=== PATIENT | female | born 1940 | race Caucasian/White ===

== ENCOUNTER → 2016-12-02 | Outpatient (CLI) | payer MEDICARE ==
[~2016-12-02] MED LIST: ASPI-808 PO; ASPI325T32 PO; CYAN10006 PO; GLYB2.5T4 PO; HYDR-3816 PO; INSU100V16 SC; INSU100V5 SQ; LOSA50TA36 PO; LOVA20TA2 PO; METF500T4 PO; MULT1CAP27 PO; NAPR220C46 PO; OMG1KC PO; SENN-20 PO; TRAM50TA2 PO; VITA400C58 PO
--- NOTE | 2016-12-02 11:47 | Diagnostic Imaging Report ---
PROCEDURE: US Carotid Duplex Bilateral. TECHNIQUE: Multiple real-time grayscale images were obtained over the carotid arteries in various projections bilaterally. Additional duplex Doppler and color Doppler images were also obtained. INDICATION: Family history of carotid artery disease. FINDINGS: Grayscale images demonstrate minimal plaque along the proximal internal carotid arteries bilaterally. The color Doppler demonstrates patent common, internal and external carotid arteries. There is antegrade flow in the vertebral arteries bilaterally. Peak systolic velocities in the ICA on the right are 58, 58 and 53 cm/s from proximal to distal and on the left side 53, 52 and 63 cm/s. ICA/CCA ratios are up to 0.7 on the right and 0.7 on the left. IMPRESSION: Mild atherosclerotic calcifications at the carotid bifurcation bilaterally with estimated underlying stenosis in the range of 0-25% bilaterally. Dictated by: Dictated on workstation # [id number]
== END ==
LOC: RAD 10:24
PROVIDERS: ATTEND Nurse Practitioner Community Health
DX: R09.89 Other specified symptoms and signs involving the circulatory and respiratory systems (principal); E11.9 Type 2 diabetes mellitus without complications; Z82.49 Family history of ischemic heart disease and other diseases of the circulatory system; I65.23 Occlusion and stenosis of bilateral carotid arteries
CPT/HCPCS: 93880

== ENCOUNTER 2019-10-16 12:31 | Emergency (ER) | payer MEDICARE ==
[~2019-10-16] VITALS: Ht 157 cm; Wt 86.1 kg
[~2019-10-16 12:31] MED LIST changes: +CYAN-41 PO; -CYAN10006 PO; +HYDR-34 PO; -HYDR-3816 PO; -LOSA50TA36 PO; +LOSA50TA63 PO; +METF-397 PO; -METF500T4 PO; -NAPR220C46 PO; +NAPR220C61 PO; -TRAM50TA2 PO; +TRM50T PO; +VITA-272 PO; -VITA400C58 PO
[2019-10-16] MEDS ORDERED: NS IV 1000 ML 1,000 ML IV SCH (12:42)
--- NOTE | 2019-10-16 12:54 | NUR ---
PATIENT REPORTS THAT SHE EATS 4 COOKIES EVERY AM WHILE TAKING HER MEDS. TODAY ATE AT [employer] ATE A SAUSAGE BISCUIT WITH CINNIAMON TWIST.
--- NOTE | 2019-10-16 13:00 | NUR ---
ICE CHIPS GIVEN.
[2019-10-16 13:02] LABS: BASOPHILS % (AUTO) 0 % (0-10); EOSINOPHILS # (AUTO) 0.2 10^3/uL (0.0-0.3); EOSINOPHILS % (AUTO) 2 % (0-10); HEMATOCRIT 40 % (35-52); HEMOGLOBIN 13.3 G/DL (11.5-16.0); LYMPHOCYTES # (AUTO) 2.2 X 10^3 (1.0-4.0); LYMPHOCYTES % (AUTO) 24 % (12-44); MEAN CORPUSCULAR HEMOGLOBIN 27 PG (25-34); MEAN CORPUSCULAR HGB CONC 33 G/DL (32-36); MEAN CORPUSCULAR VOLUME 82 FL (80-99); MEAN PLATELET VOLUME 9.6 FL (7.4-10.4); MONOCYTES # (AUTO) 0.7 X 10^3 (0.0-1.0); MONOCYTES % (AUTO) 8 % (0-12); NEUTROPHILS # (AUTO) 6.2 X 10^3 (1.8-7.8); NEUTROPHILS % (AUTO) 66 % (42-75); PLATELET COUNT 265 10^3/uL (130-400); RED CELL DISTRIBUTION WIDTH 14.5 % (10.0-14.5); WHITE BLOOD COUNT 9.4 10^3/uL (4.3-11.0)
--- NOTE | 2019-10-16 13:02 | NUR ---
MED LIST TO CHART
--- NOTE | 2019-10-16 13:05 | ED General ---
General Chief Complaint: Glucose Problems Stated Complaint: BS ISSUES;DRY MOUTH Nursing Triage Note: STATES HER BLOOD SUGAR THIS AM WAS 366 ET SHE TOOK 28 UNITS OF LEVIMIR. STATES SHE IS VERY TIRED AND HER MOUTH IS DRY WHICH IS CAUSING HER TO HAVE TROUBLE SPEAKING. Nursing Sepsis Screen: No Definite Risk History of Present Illness Date Seen by Provider: Oct 16, 2019 Time Seen by Provider: 12:35 Initial Comments 79 year old Type II DM female presents for hyperglycemia. She reports that she took her blood sugar approximately one hour prior to arrival and it was 366. Earlier today she took her Levemir 28 units and then ate 3 oreos and came to town and had [employer] including a sausage biscuit and cinnamon sugar twists. She has had very little water intake today. She is complaining that her mouth is dry. She is unsure what her latest hemoglobin A1c is, however her reports that her blood sugars 200 regularly. She takes Levemir twice daily. Timing/Duration: 1-3 Hours Associated Systoms: No Chest Pain, No Cough, No Diaphoresis, No Fever/Chills, No Headaches, No Loss of Appetite; Malaise; No Nausea/Vomiting, No Rash, No Seizure, No Shortness of Air, No Syncope, No Weakness, No Other Allergies and Home Medications Allergies Coded Allergies: No Known Drug Allergies (Unverified , 07/20/15) Home Medications Aspirin 325 Mg Tablet.dr, 325 MG PO BID Prescribed by: AMY LANCE on 08/05/15 1112 Cyanocobalamin (Vitamin B-12) 1,000 Mcg Tablet, 1,000 MCG PO DAILY, (Reported) Hydrocodone Bit/Acetaminophen 1 Each Tablet, 1 EA PO Q4H PRN for PAIN Prescribed by: YAO NUÑEZ on 07/31/15 1018 Losartan Potassium 50 Mg Tablet, 50 MG PO HS, (Reported) Lovastatin 20 Mg Tablet, 20 MG PO HS, (Reported) Metformin HCl 500 Mg Tablet, 500 MG PO TIDWM Prescribed by: YAO NUÑEZ on 07/31/15 1018 Multivitamin 1 Each Capsule, 1 EACH PO DAILY, (Reported) Rowe 3 Polyunsat Fatty Acids 1,000 Mg Cap, 1,000 MG PO DAILY, (Reported) Sennosides/Docusate Sodium 1 Each Tablet, 1 EA PO BID Prescribed by: AMY LANCE on 08/05/15 1112 Vitamin E Mixed 400 Unit Capsule, 400 UNIT PO DAILY, (Reported) Patient Home Medication List Home Medication List Reviewed: Yes Review of Systems Review of Systems Constitutional: no symptoms reported, see HPI EENTM: see HPI, other (dry mouth) Respiratory: no symptoms reported, see HPI Cardiovascular: no symptoms reported, see HPI Gastrointestinal: no symptoms reported, see HPI Genitourinary: no symptoms reported, see HPI Musculoskeletal: no symptoms reported, see HPI Psychiatric/Neurological: No Symptoms Reported, See HPI All Other Systems Reviewed Negative Unless Noted: Yes Past Raiuyat-Lgtltp-Jeqdhc Hx Past Med/Social Hx: Reviewed Nursing Past Med/Soc Hx Patient Social History Alcohol Use: Denies Use Recreational Drug Use: No Smoking Status: Never a Smoker Recent Foreign Travel: No Contact w/Someone Who Travel: No Recent Infectious Disease Expo: No Immunizations Up To Date Tetanus Booster (TDap): Unknown PED Vaccines UTD: No Date of Pneumonia Vaccine: Aug 14, 2011 Date of Influenza Vaccine: May 28, 2015 Past Medical History Surgeries: Yes Respiratory: No Cardiac: Yes Neurological: No Gastrointestinal: Yes Chronic Constipation Musculoskeletal: Yes Arthritis Endocrine: Yes Diabetes, Non-Insulin dep Cancer: No Psychosocial: No Integumentary: No Blood Disorders: No Adverse Reaction/Blood Tranf: No Family Medical History Alcoholism 19 FATHER Aphasia Arthritis G8 SISTER Dementia 19 MOTHER Diabetes mellitus G8 SISTER Physical Exam Vital Signs Vital Signs - First Documented 10/16/19 12:35 Temp 35.3 Pulse 104 Resp 16 B/P (MAP) 156/91 (112) Pulse Ox 95 O2 Delivery Room Air Capillary Refill : Less Than 3 Seconds Height, Weight, BMI Height: 5'2.00" Weight: 184lbs. 6.4oz. [id number]; 34.00 BMI Method: General Appearance: No Apparent Distress, WD/WN Eyes: Bilateral Eye Normal Inspection, Bilateral Eye PERRL, Bilateral Eye EOMI HEENT: PERRL/EOMI, TMs Normal, Pharynx Normal, Other (oromucosa pink and dry) Neck: Full Range of Motion, Normal Inspection, Non Tender, Supple Respiratory: Chest Non Tender, Lungs Clear, Normal Breath Sounds Cardiovascular: Regular Rate, Rhythm, No Murmur, Normal Peripheral Pulses Extremity: Normal Capillary Refill, Normal Inspection, Normal Range of Motion Neurologic/Psychiatric: Alert, Oriented x3, No Motor/Sensory Deficits, Normal Mood/Affect, 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 Progress/Results/Core Measures Suspected Sepsis Recent Fever Within 48 Hours: No Infection Criteria Present: None New/Unexplained Altered Menta: No Sepsis Screen: No Definite Risk SIRS Temperature: Pulse: 104 Respiratory Rate: 16 Laboratory Tests 10/16/19 12:54: White Blood Count 9.4 Blood Pressure 156 /91 Mean: 112 Laboratory Tests 10/16/19 12:54: Creatinine 1.05, Platelet Count 265, Total Bilirubin 0.3 Results/Orders Lab Results Laboratory Tests Test 10/16/19 12:44 10/16/19 12:54 10/16/19 13:04 Range/Units Glucometer 263 H 70-110 MG/DL White Blood Count 9.4 4.3-11.0 10^3/uL Red Blood Count 4.96 4.35-5.85 10^6/uL Hemoglobin 13.3 11.5-16.0 G/DL Hematocrit 40 35-52 % Mean Corpuscular Volume 82 80-99 FL Mean Corpuscular Hemoglobin 27 25-34 PG Mean Corpuscular Hemoglobin Concent 33 32-36 G/DL Red Cell Distribution Width 14.5 10.0-14.5 % Platelet Count 265 130-400 10^3/uL Mean Platelet Volume 9.6 7.4-10.4 FL Neutrophils (%) (Auto) 66 42-75 % Lymphocytes (%) (Auto) 24 12-44 % Monocytes (%) (Auto) 8 0-12 % Eosinophils (%) (Auto) 2 0-10 % Basophils (%) (Auto) 0 0-10 % Neutrophils # (Auto) 6.2 1.8-7.8 X 10^3 Lymphocytes # (Auto) 2.2 1.0-4.0 X 10^3 Monocytes # (Auto) 0.7 0.0-1.0 X 10^3 Eosinophils # (Auto) 0.2 0.0-0.3 10^3/uL Basophils # (Auto) 0.0 0.0-0.1 10^3/uL Sodium Level 139 135-145 MMOL/L Potassium Level 4.3 3.6-5.0 MMOL/L Chloride Level 105 98-107 MMOL/L Carbon Dioxide Level 26 21-32 MMOL/L Anion Gap 8 5-14 MMOL/L Blood Urea Nitrogen 14 7-18 MG/DL Creatinine 1.05 0.60-1.30 MG/DL Estimat Glomerular Filtration Rate 51 BUN/Creatinine Ratio 13 Glucose Level 260 H 70-105 MG/DL Calcium Level 9.2 8.5-10.1 MG/DL Corrected Calcium 9.1 8.5-10.1 MG/DL Total Bilirubin 0.3 0.1-1.0 MG/DL Aspartate Amino Transf (AST/SGOT) 18 5-34 U/L Alanine Aminotransferase (ALT/SGPT) 21 0-55 U/L Alkaline Phosphatase 105 40-136 U/L Total Protein 7.1 6.4-8.2 GM/DL Albumin 4.1 3.2-4.5 GM/DL Urine Color YELLOW Urine Clarity CLEAR Urine pH 5.5 5-9 Urine Specific [place] <=1.005 1.016-1.022 Urine Protein NEGATIVE NEGATIVE Urine Glucose (UA) 3+ H NEGATIVE Urine Ketones NEGATIVE NEGATIVE Urine Nitrite NEGATIVE NEGATIVE Urine Bilirubin NEGATIVE NEGATIVE Urine Urobilinogen 0.2 < = 1.0 MG/DL Urine Leukocyte Esterase NEGATIVE NEGATIVE Urine RBC (Auto) NEGATIVE NEGATIVE Urine RBC NONE /HPF Urine WBC NONE /HPF Urine Squamous Epithelial Cells 0-2 /HPF Urine Crystals NONE /LPF Urine Bacteria TRACE /HPF Urine Casts NONE /LPF Urine Mucus NEGATIVE /LPF Urine Culture Indicated NO My Orders Orders - BRENDON FERMIN Accucheck Stat ONCE (10/16/19 12:33) Cbc With Automated Diff (10/16/19 12:42) Comprehensive Metabolic Panel (10/16/19 12:42) Ua Culture If Indicated (10/16/19 12:42) Ed Iv/Invasive Line Start (10/16/19 12:42) Ns Iv 1000 Ml (Sodium Chloride 0.9%) (10/16/19 12:42) Accucheck Stat ONCE (10/16/19 14:16) Vital Signs/I&O 10/16/19 12:35 Temp 35.3 Pulse 104 Resp 16 B/P (MAP) 156/91 (112) Pulse Ox 95 O2 Delivery Room Air Capillary Refill : Less Than 3 Seconds Blood Pressure Mean: 112 Point of Care Testing Finger Stick Blood Glucose: 263 Progress Note : Time: 12:35 Progress Note Patient seen and evaluated, will obtain labs and give 1 L of normal saline per IV. Accu-Chek 263. 1320 Labs reviewed, all WNL other than elevated Glucose 260. Patient denies any problems. IV infusing slowly, patient has her elbow flexed. Explained she needs to keep it straight. Taking ice chips. 1400 IV continuing to infuse. 1415 Accucheck 216. Discharge instructions and return precautions reviewed with the patient. All questions answered. Departure Impression Primary Impression: Hyperglycemia due to type 2 diabetes mellitus Qualified Codes: E11.65 - Type 2 diabetes mellitus with hyperglycemia; Z79.4 - shelter (current) use of insulin Disposition: HOME, SELF-CARE Condition: Improved Departure-Patient Inst. Decision time for Depature: 13:30 Referrals: [facility] (PCP) Primary Care Physician Patient Instructions: Diabetes Type 2 (DC), Hyperglycemia, Adult (DC) Add. Discharge Instructions: Keep a journal of your food and blood sugars, check them every morning before eating and each evening. Try to avoid high sugar/carb foods. Increase water intake. See Calderon Arreola APRN in 2 weeks. Return to ER for new, urgent health care needs. All discharge instructions reviewed with patient and/or family. Voiced understanding. Copy Copies To 1: GISELE FERRERA AMY ARNP Oct 16, 2019 13:05
[2019-10-16 13:09] LABS: BILIRUBIN,URINE NEGATIVE (NEGATIVE); CLARITY,URINE CLEAR; COLOR,URINE YELLOW; GLUCOSE, URINE (UA) 3+ (NEGATIVE); KETONES,URINE NEGATIVE (NEGATIVE); LEUKOCYTE ESTERASE ,URINE NEGATIVE (NEGATIVE); NITRITE,URINE NEGATIVE (NEGATIVE); PH,URINE 5.5 (5-9); PROTEIN,URINE NEGATIVE (NEGATIVE)
[2019-10-16 13:21] LABS: BACTERIA,URINE TRACE /HPF; SQUAMOUS EPITHELIAL CELL,UR 0-2 /HPF
[2019-10-16 13:22] LABS: ALBUMIN 4.1 GM/DL (3.2-4.5); BILIRUBIN,TOTAL 0.3 MG/DL (0.1-1.0); CALCIUM 9.2 MG/DL (8.5-10.1); CREATININE SERUM 1.05 MG/DL (0.60-1.30); POTASSIUM 4.3 MMOL/L (3.6-5.0); TOTAL PROTEIN 7.1 GM/DL (6.4-8.2)
--- NOTE | 2019-10-16 13:40 | NUR ---
TO ROOM FLUIDS INFUSING
--- NOTE | 2019-10-16 14:18 | NUR ---
TO ROOM FLUIDS CON'T TO INFUSE.
[2019-10-16 14:42] VITALS: BP 187/100
== END 2019-10-16 14:45 | disposition home or self-care (01) ==
LOC: EDUNIT# 12:31 → ER 12:33
DX: E11.65 Type 2 diabetes mellitus with hyperglycemia (principal); Z79.82 Long term (current) use of aspirin; Z79.84 Long term (current) use of oral hypoglycemic drugs
CPT/HCPCS: 36415; 80053; 81000; 82962; 85025

== ENCOUNTER → 2020-05-14 | Outpatient (CLI) | payer MEDICARE | LOC: CARD 14:30 | PROVIDERS: ATTEND Internal Medicine Cardiovascular Disease | DX: I50.9 Heart failure, unspecified (principal); I10 Essential (primary) hypertension; E78.2 Mixed hyperlipidemia; E11.9 Type 2 diabetes mellitus without complications; I08.0 Rheumatic disorders of both mitral and aortic valves ==

== ENCOUNTER → 2020-05-27 | Outpatient (CLI) | payer MEDICARE, OTHER ==
[~2020-05-27] VITALS: Ht 157 cm; Wt 85.0 kg
[~2020-05-27] MED LIST changes: +CATHETER FLUSH 10 ML SYR IV PRN; +REGADENOSON 0.4 MG/5 ML SYR (LEXISCAN) IV ONE
[2020-05-27 09:24] VITALS: BP 161/89
[2020-05-27 09:35] VITALS: BP 137/81
--- NOTE | 2020-06-01 10:39 | Cardiology Stress Test Report ---
Stress Test Report Date of Procedure/Referring: Date of Procedure: May 27, 2020 PCP Brooklyn Travis MD Admitting Physician [facility] Indications: Congestive heart failure Baseline Heart Rate: 96 Baseline Blood Pressure: Blood Pressure Systolic: 137 Blood Pressure Diastolic: 81 Baseline Vitals Vital Signs Date Time Temp Pulse Resp B/P (MAP) Pulse Ox O2 Delivery O2 Flow Rate FiO2 05/27/20 09:24 116 20 161/89 (113) Room Air Baseline EKG: Baseline EKG: normal sinus rhythm, poor R-wave progression in the anteriorly Summary After explaining the procedure to the patient, she signed a consent and then brought to the stress nuclear laboratory. Patient received 0.4 mg Lexiscan for stress test, ECG, heart rate and blood pressure were monitored continuously. Resting and stress dose of radio tracer were injected, imaging was acquired and reviewed in short axis, horizontal long axis and vertical long axis views. TID: 1.08 SSS: 44 SDS: 5 EF: 28 1. Patient tolerated Lexiscan well 2. Baseline EKG abnormality with poor R-wave progression in the anterior lead and inferior leads 3. Total infarction of the true apex, mid to apical anterior wall and mid to apical inferior wall with no significant reversibility 4. Prominent left ventricle with dyskinesia of the apex, hypokinesia of the anterior wall and inferior wall, EF 28 percent BROOKLYN TRAVIS MD Jun 01, 2020 10:39
== END ==
LOC: CARD 08:13
PROVIDERS: ATTEND Internal Medicine Cardiovascular Disease
DX: I50.9 Heart failure, unspecified (principal); I11.9 Hypertensive heart disease without heart failure; E78.2 Mixed hyperlipidemia; E11.9 Type 2 diabetes mellitus without complications
CPT/HCPCS: 78452; 93017; A9502

== ENCOUNTER 2020-07-29 11:00 | Day surgery (SDC) | payer MEDICARE ==
[~2020-07-29] VITALS: Ht 152.4 cm; Wt 193.0 kg
[2020-07-29] VITALS (13 sets, daily range): BP systolic 96–148; BP diastolic 67–88
[2020-07-29 09:28] LABS: HEMOGLOBIN 13.5 g/dL (11.5-16.0); MEAN PLATELET VOLUME 9.9 fL (9.0-12.2); WHITE BLOOD COUNT 11.2 10^3/uL (4.3-11.0)
[2020-07-29 09:36] LABS: PROTHROMBIN TIME PATIENT 13.3 SEC (12.2-14.7)
[2020-07-29 09:38] LABS: BILIRUBIN,URINE NEGATIVE (NEGATIVE); CLARITY,URINE TURBID; COLOR,URINE YELLOW; GLUCOSE, URINE (UA) 1+ (NEGATIVE); KETONES,URINE NEGATIVE (NEGATIVE); LEUKOCYTE ESTERASE ,URINE TRACE (NEGATIVE); NITRITE,URINE NEGATIVE (NEGATIVE); PH,URINE 5.5 (5-9); PROTEIN,URINE TRACE (NEGATIVE)
[2020-07-29 09:48] LABS: ALBUMIN 4.2 GM/DL (3.2-4.5); BILIRUBIN,TOTAL 0.5 MG/DL (0.1-1.0); CALCIUM 9.2 MG/DL (8.5-10.1); CREATININE SERUM 1.26 MG/DL (0.60-1.30); POTASSIUM 4.4 MMOL/L (3.6-5.0); TOTAL PROTEIN 7.5 GM/DL (6.4-8.2)
--- NOTE | 2020-07-29 09:48 | Diagnostic Imaging Report ---
INDICATION: Coronary artery disease AP view of the chest is obtained. Comparison is made to the study of 07/20/2015. Heart size is at the upper limits of normal. Pulmonary vascularity is unremarkable. There is no evidence of pneumothorax or consolidation. No significant pleural fluid is identified. Advanced degenerative findings have progressed in the shoulder girdles. IMPRESSION: Borderline cardiomegaly. Otherwise, no acute abnormality or adverse change is identified. Dictated by: Dictated on workstation # [id number]
[2020-07-29 09:57] LABS: BACTERIA,URINE TRACE /HPF; RBC,URINE 0-2 /HPF; SQUAMOUS EPITHELIAL CELL,UR >50 /HPF; WBC,URINE 0-2 /HPF
--- NOTE | 2020-07-29 10:37 | Cardiac Procedure Note-CS/ASA ---
Pre-Procedure Note Pre-Op Procedure Note H&P Reviewed The H&P was reviewed, patient examined and no changes noted. Date H&P Reviewed: Jul 29, 2020 Time H&P Reviewed: 10:37 Conscious Sedation Pre-Proced Time 10:37 ASA Score 3 For ASA 3 and 4: Consider anesthesia and medical clearance. Also, for patients with a history of failed moderate sedation consider anesthesia. Airway Lungs Heart ASA score ASA 1: a normal healthy patient ASA 2: a patient with a mild systemic disease (mid diabetes, controlled hypertension, obesity x ASA 3: a patient with a severe systemic disease that limits activity (angina, COPD, prior Myocardial infarction) ASA 4: a patient with an incapacitating disease that is a constant threat to life (CHF, renal failure) ASA 5: a moribund patient not expected to survive 24 hrs. (ruptured aneurysm) ASA 6: a declared brain- patient whose organs are being harvested. For emergent operations, add the letter E after the classification Mallampati Classification Grade 3 Sedation Plan Analgesia, Amnesia, Plan communicated to team members, Discussed options with patient/fam, Discussed risks with patient/fam The patient is an appropriate candidate to undergo the planned procedure, sedation, and anesthesia. The patient immediately re-assessed prior to indication. BROOKLYN PASTRANA MD Jul 29, 2020 10:37
[~2020-07-29 11:00] MED LIST changes: +AMLO-250 PO; -CATHETER FLUSH 10 ML SYR IV PRN; +GBPN600T PO; +HEParin (CATH LAB) 2,000 ML IV ONE; +HEParin 1000 UNIT/ML (10ML VIAL) FOR BOLUS ONE; +INSU100I29 SQ; +LIDOCAINE 1% INJ 20 ML 20 ML VIAL ONE; +METO-351 PO; +MIDAZOLAM 5 MG/5 ML (VERSED) VIAL ONE; +NITRO DRIP 25000 MCG/D5W 250 ML IV ONE; +NS IV 1000 ML 1,000 ML IV SCH; +NS IV 1000 ML 1,000 ML ONE; -REGADENOSON 0.4 MG/5 ML SYR (LEXISCAN) IV ONE; +VERAPAMIL 5 MG/2 ML (CALAN) VIAL IV ONE; +fentaNYL INJECTION 100 MCG/2 ML AMP ONE; +inSUlin (REGULAR) HUMAN 1 UNIT/0.01 ML (CHARGE PER UNIT) ONE; +inSUlin (REGULAR) HUMAN 1 UNIT/0.01 ML (CHARGE PER UNIT) SC ONE
[2020-07-29] MEDS ORDERED: ASPIRIN 325 MG (5 GR) TABLET ONE (11:16)
[2020-07-29] MEDS ORDERED: CLOPIDOGREL 300 MG (PLAVIX) TABLET PO ONE (11:16)
--- NOTE | 2020-07-29 11:29 | Cardiac Cath Report ---
Cardiac Cath Report Physician (s)/Registered Radiation Therapist (s) Physician BROOKLYN PASTRANA MD Pre-Procedure Diagnosis Pre-Procedure Diagnosis: coronary artery disease Post-Procedure Note Procedure Start Date: Jul 29, 2020 Name of Procedure: Left heart catheterization Stenting to the right coronary artery Findings/Procedure Note PROCEDURE NOTE: 79-year-old lady with history of coronary artery disease, diabetes mellitus, hypertension and chronic renal insufficiency, has an abnormal stress test scheduled for cardiac catheterization possible PTCA. After explaining the procedure to the patient, all pros and cons were explained, all questions were answered. The patient signed the consent and then she was placed on the cardiac catheterization laboratory. Groin was prepped SL fashion local anesthesia was used. Sheath placed in the right radial artery, [place] catheter was used and advanced to the left ventricular cavity, left ventricular gram was done, pulled back to the left coronary system I was unable to intubate the left carotid system well. Exchanged using FL catheter to the left system and angiogram was done then exchanged to Rukhsana right guide, advanced to the right coronary artery, angiogram was done then patient receive additional 3000 units of heparin for a total of 6000 units of heparin, BMW wire was advanced distally then primary stenting using Jennifer 3.0 x 50 mm expanded under 15 mallory to 3.1 with excellent results. At the end of the procedure the sheath was removed. Vascular bed was used FINDINGS: Hemodynamics LV 131/20, end-diastolic pressure of 20 Aorta 116/64 mean of 68 ANATOMY: Left Main free of obstructive disease Left Anterior Descending is totally occluded at the midportion, not receiving any collaterals, the first diagonal artery has severe stenosis proximally Left Circumflex is moderate in size with 60-70 percent stenosis proximally Right Coronory Artery is large dominant artery with severe stenosis proximally, primary stenting using Jennifer 3.0 x 15 mm expanded to 3.1 mm with excellent results LV Gram was done, it was insufficient contrast, known to have apical akinesia, ejection fraction 30 percent CONCLUSION: 1. Severe stenosis in the proximal right coronary artery with primary stenting using Jennifer 3.0 x 50 mm expanded to 3.1 mm with excellent results 2. Totally occluded mid LAD not receiving any collateral, on the SPECT images patient had total infarction, I will evaluate viability study 3. Severe stenosis in the proximal first diagonal artery that needed intervention and need to be planned as a high risk intervention including evaluating the circumflex artery 4. Moderate to severe proximal/ostial circumflex artery stenosis, need to be evaluated with possible intervention 5. Known to have severe cardiomyopathy with EF 30 percent DISCUSSION AND RECOMMENDATION: I will evaluate viability study then consider referring the patient for a tertiary care center for evaluation for high risk intervention involving the diagonal, proximal circumflex and possible LAD Anesthesia Type: Conscious Sedation Estimated blood loss (mL): 30 ml Contrast Amount: 60 ml Total Radiation Dose: 973 mGy Post-Procedure Diagnosis Post-operative diagnosis: Coronary artery disease Congestive heart failure Hypertension Hyperlipidemia BROOKLYN PASTRANA MD Jul 29, 2020 11:29
[2020-07-29] MEDS ORDERED: PATIENT MAY USE OWN MEDS, ALL PO SCH (11:30)
[2020-07-29] MEDS: NS IV 1000 ML 1,000 ML IV SCH ×2 (12:10→22:49)
[2020-07-29] MEDS ORDERED: GABAPENTIN 600 MG (NEURONTIN) TAB PO SCH (21:00)
[2020-07-29] MEDS ORDERED: INSULIN DETEMIR 40 UNIT SQ SCH (21:00)
[2020-07-29] MEDS ORDERED: NON-FORMULARY MEDICATION 1 EA EA (Lovastatin 20 MG) PO SCH (21:00)
[2020-07-30] VITALS: BP 130/79
[2020-07-30 03:45] LABS: HEMOGLOBIN 12.1 g/dL (11.5-16.0); WHITE BLOOD COUNT 11.1 10^3/uL (4.3-11.0)
[2020-07-30 04:00] LABS: CALCIUM 8.6 MG/DL (8.5-10.1); CREATININE SERUM 0.94 MG/DL (0.60-1.30); POTASSIUM 3.9 MMOL/L (3.6-5.0)
[2020-07-30 04:16] VITALS: BP 142/77
[2020-07-30] MEDS ORDERED: CLOP75TA28 PO (06:22)
[2020-07-30] MEDS ORDERED: ASPI-1238 PO (06:22)
[2020-07-30] MEDS ORDERED: PANT40SU PO (06:22)
[2020-07-30] MEDS ORDERED: METF-397 PO (06:22)
[2020-07-30] MEDS ORDERED: ATOR40TA PO (06:22)
--- NOTE | 2020-07-30 06:23 | Discharge Inst-Post CATH ---
Discharge Inst-CATH/EP Problems Reviewed?: Yes Post Cardiac Cath/EP D/C Inst Follow Up/Plan Hold Metformin for [address] Travis's office in 4 weeks <b>CARDIAC CATH/EP PROCEDURE DISCHARGE INSTRUCTIONS</b> ACTIVITY * Go Home directly and rest. * Limit activity of the leg (or wrist if it was used) for 7 days including aerobics, swimming, jogging, bicycling, etc. * Restrict stair-climbing for 7 days if possible, if not, climb up with your non-cath leg, then bring together on the same step. * Avoid lifting, pushing, pulling or excessive movement of the affected extremity for 7 days. * Customary sexual activity may be resumed after 2 days-use caution not to use a position that strains or causes pain to the affected extremity. * No driving for 24 hours. * NO SMOKING. * Avoid straining for bowel movements for 7 days. * Gentle walking on level ground is allowed. * Returning to work will depend on the type of procedure and the results. Your doctor will discuss this with you. CALL YOUR DOCTOR FOR ANY OF THE FOLLOWING: *If bleeding from the puncture site occurs- Apply gentle pressure to site with clean cloth and call your doctor or EMS. * If a knot or lump forms under the skin, increases in size, or causes pain. * If bruising appears to be worsening or moving further down your leg instead of disappearing. * Temperature above 101 F. CARE OF YOUR GROIN INCISION; * Bruising or purple discoloration of the skin near the puncture site is common. * You may shower only, no bathtub bathing for 5 days. Be careful to avoid slipping as your leg may feel stiff. * If a closure device was used on your femoral artery, please see the attached guide regarding care of the device and your leg. * Leave dressing on FOR 24 hours. CARE OF YOUR WRIST INCISION; * Bruising or purple discoloration of the skin near the puncture site is common. * You may shower. * DO NOT submerge wrist. * Leave dressing on FOR 24 hours. BROOKLYN TRAVIS MD Jul 30, 2020 06:23
[2020-07-30 08:00] VITALS: BP 130/79
[2020-07-30] MEDS ORDERED: ASPIRIN E.C. 81 MG (ECOTRIN) TAB PO SCH (09:00)
[2020-07-30] MEDS ORDERED: amLODIPine 5 MG (NORVASC) TAB PO SCH (09:00)
[2020-07-30] MEDS ORDERED: CLOPIDOGREL 75 MG (PLAVIX) TABLET PO SCH (09:00)
[2020-07-30] MEDS ORDERED: OMEGA 3 (FISH OIL) 1000 MG CAP PO SCH (09:00)
--- NOTE | 2020-07-30 09:01 | Cardiology Progress Note ---
Subjective Date Seen by Provider: Jul 30, 2020 Time Seen by Provider: 08:58 Subjective/Events-last exam Patient is in bed, feeling better, no new complaint, groin is healing well Review of Systems General: No Chills, No Night Sweats, No Fatigue, No Malaise, No Appetite, No Other HEENT: No Head Aches, No Visual Changes, No Eye Pain, No Ear Pain, No Dysphasia, No Sinus Congestion, No Post Nasal Drip, No Sore Throat, No Other Pulmonary: No Dyspnea, No Cough, No Pleuritic Chest Pain, No Other Cardiovascular: No: Chest Pain, Palpitations, Orthopnea, Paroxysmal Noc. Dyspnea, Edema, Lt Headedness, Other Objective-Cardiology Exam Last Set of Vital Signs Vital Signs 07/30/20 08:00 Temp 36.0 Pulse 84 Resp 19 B/P (MAP) 130/79 (96) Pulse Ox 97 O2 Delivery Room Air Capillary Refill : Less Than 3 Seconds I&O Intake and Output 07/30/20 00:00 Intake Total 1070 ml Balance 1070 ml Intake Oral 1070 ml # Voids 3 General: Alert, Oriented X3, Cooperative HEENT: Atraumatic, PERRLA Neck: Supple, No JVD, No Thyromegaly Lungs: Clear to Auscultation, Normal Air Movement Heart: Regular Rate, Normal S1, Normal S2, No Murmurs Abdomen: Normal Bowel Sounds, Soft, No Tenderness, No Hepatosplenomegaly, No Masses Extremities: No Clubbing, No Cyanosis, No Edema, Normal Pulses, No Tenderness/Swelling Skin: No Rashes, No Breakdown, No Significant Lesion Neuro: Normal Gait, Normal Speech, Strength at 5/5 X4 Ext, Normal Tone, Sensation Intact Psych/Mental Status: Mental Status NL, Mood NL Results Lab Laboratory Tests 07/29/20 09:20 07/30/20 03:23 A/P-Cardiology Admission Diagnosis coronary artery disease Congestive heart failure Hypertension Hyperlipidemia Assessment/Plan coronary artery disease, extensive disease as described below, planning to evaluate viability study of the anterior wall Hypertension, continue her current medication Hyperlipidemia, monitor lipids Severe cardiomyopathy, chronic left ventricular systolic dysfunction, ischemic cardiomyopathy, ejection fraction 30 percent, maintained on beta blockers and AYUSH inhibitor I will arrange for follow-up as an outpatient cardiac catheterization results from July 29, 2020 1. Severe stenosis in the proximal right coronary artery with primary stenting using Jennifer 3.0 x 50 mm expanded to 3.1 mm with excellent results 2. Totally occluded mid LAD not receiving any collateral, on the SPECT images patient had total infarction, I will evaluate viability study 3. Severe stenosis in the proximal first diagonal artery that needed intervention and need to be planned as a high risk intervention including evaluating the circumflex artery 4. Moderate to severe proximal/ostial circumflex artery stenosis, need to be evaluated with possible intervention 5. Known to have severe cardiomyopathy with EF 30 percent BROOKLYN PASTRANA MD Jul 30, 2020 09:01
[2020-07-30] MEDS ORDERED: NS IV 1000 ML 2,000 ML ONE (14:45)
== END 2020-07-30 09:36 | disposition home or self-care (01) ==
LOC: CATH 11:00 → CSD 11:56 → CATH 07-30 09:36
PROVIDERS: ATTEND Internal Medicine Cardiovascular Disease
DX: I25.10 Atherosclerotic heart disease of native coronary artery without angina pectoris (principal); I11.0 Hypertensive heart disease with heart failure; I50.9 Heart failure, unspecified; E78.5 Hyperlipidemia, unspecified; E11.9 Type 2 diabetes mellitus without complications; I65.23 Occlusion and stenosis of bilateral carotid arteries; Z79.82 Long term (current) use of aspirin; Z79.899 Other long term (current) drug therapy; Z79.84 Long term (current) use of oral hypoglycemic drugs; Z88.8 Allergy status to other drugs, medicaments and biological substances
CPT/HCPCS: 71045; 78452; 80048; 80053; 80061; 81000; 82962; 85027 ×2; 85610; 85730; 87081; 93005; 93017; 93458; A9505; C1769; C1874; C1887; C1894; C9600; 36415

== ENCOUNTER → 2020-12-01 | Outpatient (CLI) | payer MEDICARE ==
[~2020-12-01] MED LIST changes: +ASPI-1238 PO; +ATOR40TA PO; +CLOP75TA28 PO; +GLBR2.5T PO; -GLYB2.5T4 PO; -HEParin (CATH LAB) 2,000 ML IV ONE; -HEParin 1000 UNIT/ML (10ML VIAL) FOR BOLUS ONE; -LIDOCAINE 1% INJ 20 ML 20 ML VIAL ONE; -MIDAZOLAM 5 MG/5 ML (VERSED) VIAL ONE; -NITRO DRIP 25000 MCG/D5W 250 ML IV ONE; -NS IV 1000 ML 1,000 ML IV SCH; -NS IV 1000 ML 1,000 ML ONE; +PANT40SU PO; -VERAPAMIL 5 MG/2 ML (CALAN) VIAL IV ONE; -fentaNYL INJECTION 100 MCG/2 ML AMP ONE; -inSUlin (REGULAR) HUMAN 1 UNIT/0.01 ML (CHARGE PER UNIT) ONE; -inSUlin (REGULAR) HUMAN 1 UNIT/0.01 ML (CHARGE PER UNIT) SC ONE
== END ==
LOC: CARD 11:10
PROVIDERS: ATTEND Physician Assistant
DX: I50.9 Heart failure, unspecified (principal); I08.0 Rheumatic disorders of both mitral and aortic valves
CPT/HCPCS: 93306

== ENCOUNTER 2021-02-03 12:00 | Observation (INO) | payer MEDICARE ==
[~2021-02-03] VITALS: Ht 157 cm; Wt 85.0 kg
--- NOTE | 2021-02-03 12:20 | ED Cardiac General ---
History of Present Illness General Stated Complaint: POSSIBLE HEART ATTACK Source: patient Exam Limitations: no limitations History of Present Illness Date Seen by Provider: Feb 03, 2021 Time Seen by Provider: 12:06 Initial Comments This is a well-appearing 80-year-old female who presents to the ER with complaints of shortness of breath last night from around 0100 in the morning to 0400 this morning. States that she does have a significant cardiac history and had two coronary stents placed in August of this year and last month she experienced chest pain while in [place] and had a cardiac catheterization which required no intervention. States last night she had a little bit of chest discomfort left of the sternal border associated with her shortness of breath. However her symptoms were improved after taking a full-strength aspirin. She called her wireless operator this morning and they recommended she go to the ER for further evaluation. Is currently denying chest pain, shortness of breath, diaphoresis, nausea, vomiting, abdominal pain. Reports no fever, chills, cough. Allergies and Home Medications Allergies Coded Allergies: lisinopril (Verified Allergy, Mild, 07/29/20) Home Medications Amlodipine Besylate 5 Mg Tablet, 5 MG PO DAILY, (Reported) Last Action: Continued Aspirin 81 Mg Tablet., 81 MG PO DAILY Prescribed by: BROOKLYN TRAVIS on 07/30/20621 Last Action: Reviewed Clopidogrel Bisulfate 75 Mg Tablet, 75 MG PO DAILY Prescribed by: BROOKLYN TRAVIS on 07/30/20621 Last Action: Continued Cyanocobalamin (Vitamin B-12) 1,000 Mcg Tablet, 1,000 MCG PO DAILY, (Reported) Last Action: Continued Gabapentin 600 Mg Tablet, 600 MG PO DAILY, (Reported) Last Action: Continued Insulin Detemir 100 Unit/1 Ml Insuln.pen, 40 UNIT SQ BID, (Reported) Last Action: Held Metformin HCl 500 Mg Tablet, 500 MG PO BID Hold Metformin for 48 hours Prescribed by: BROOKLYN TRAVIS on 07/30/20621 Last Action: Held Metoprolol Succinate 25 Mg Tab.er.24h, 25 MG PO DAILY, (Reported) Last Action: Continued Multivitamin 1 Each Capsule, 1 EACH PO DAILY, (Reported) Last Action: Held [place] 3 Polyunsat Fatty Acids 1,000 Mg Cap, 1,000 MG PO DAILY, (Reported) Last Action: Held Pantoprazole Sodium 40 Mg Granpkt.dr, 40 MG PO DAILY Prescribed by: BROOKLYN TRAVIS on 07/30/20 0622 Last Action: Converted Tramadol HCl 50 Mg Tablet, 50 MG PO Q4H PRN for PAIN-MODERATE (5-7), (Reported) Last Action: Continued Vitamin E Mixed 400 Unit Capsule, 400 UNIT PO DAILY, (Reported) Last Action: Held Patient Home Medication List Home Medication List Reviewed: Yes Review of Systems Review of Systems Constitutional: see HPI EENTM: No Symptoms Reported Respiratory: See HPI Cardiovascular: See HPI Gastrointestinal: No Symptoms Reported Genitourinary: No Symptoms Reported Musculoskeletal: no symptoms reported Skin: no symptoms reported Psychiatric/Neurological: No Symptoms Reported Endocrine: No Symptoms Reported Hematologic/Lymphatic: No Symptoms Reported Past Uhlvlke-Sygtuo-Hasbdv Hx Patient Social History Recent Hopitalizations: No Immunizations Up To Date Tetanus Booster (TDap): Unknown PED Vaccines UTD: No Date of Pneumonia Vaccine: Aug 14, 2011 Date of Influenza Vaccine: May 28, 2015 Past Medical History Surgeries: Yes Appendectomy, Hysterectomy, Joint Replacement Respiratory: No Cardiac: Yes Congenital Heart Disease, Hypertension Neurological: No Gastrointestinal: Yes Chronic Constipation Musculoskeletal: Yes Arthritis Endocrine: Yes Diabetes, Non-Insulin dep Cancer: No Psychosocial: No Integumentary: No Blood Disorders: No Adverse Reaction/Blood Tranf: No Family Medical History Alcoholism 19 FATHER Aphasia Arthritis G8 SISTER Dementia 19 MOTHER Diabetes mellitus G8 SISTER Physical Exam Vital Signs Vital Signs - First Documented 02/03/21 12:02 Temp 35.9 Pulse 86 Resp 18 B/P (MAP) 173/97 (122) Pulse Ox 97 O2 Delivery Room Air Capillary Refill : Height, Weight, BMI Height: 5'2.00" Weight: 184lbs. 6.4oz. 83.530879wu; 83.09 BMI Method: General Appearance: No Apparent Distress, WD/WN HEENT: PERRL/EOMI, Normal ENT Inspection, Pharynx Normal, Moist Mucous Membran es Neck: Full Range of Motion, Normal Inspection, Supple Respiratory: Chest Non Tender, No Accessory Muscle Use, Crackles (bilateral bases ) Cardiovascular: Regular Rate, Rhythm, No Edema, Normal Peripheral Pulses Gastrointestinal: Normal Bowel Sounds, Non Tender, Soft Extremity: Normal Capillary Refill, Normal Inspection, Normal Range of Motion, No Pedal Edema Neurologic/Psychiatric: Alert, Oriented x3, No Motor/Sensory Deficits, Normal 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, 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 Norm as Tested Skin: Normal Color, Warm/Dry Progress/Results/Core Measures Results/Orders Lab Results Laboratory Tests Test 02/03/21 12:14 Range/Units White Blood Count 9.5 4.3-11.0 10^3/uL Red Blood Count 4.41 3.80-5.11 10^6/uL Hemoglobin 11.8 11.5-16.0 g/dL Hematocrit 37 35-52 % Mean Corpuscular Volume 83 80-99 fL Mean Corpuscular Hemoglobin 27 25-34 pg Mean Corpuscular Hemoglobin Concent 32 32-36 g/dL Red Cell Distribution Width 14.7 H 10.0-14.5 % Platelet Count 292 130-400 10^3/uL Mean Platelet Volume 9.7 9.0-12.2 fL Immature Granulocyte % (Auto) 1 % Neutrophils (%) (Auto) 73 42-75 % Lymphocytes (%) (Auto) 17 12-44 % Monocytes (%) (Auto) 8 0-12 % Eosinophils (%) (Auto) 2 0-10 % Basophils (%) (Auto) 1 0-10 % Neutrophils # (Auto) 6.9 1.8-7.8 10^3/uL Lymphocytes # (Auto) 1.6 1.0-4.0 10^3/uL Monocytes # (Auto) 0.7 0.0-1.0 10^3/uL Eosinophils # (Auto) 0.1 0.0-0.3 10^3/uL Basophils # (Auto) 0.1 0.0-0.1 10^3/uL Immature Granulocyte # (Auto) 0.1 0.0-0.1 10^3/uL Prothrombin Time 14.0 12.2-14.7 SEC INR Comment 1.0 0.8-1.4 Activated Partial Thromboplast Time 26 24-35 SEC D-Dimer 0.83 H 0.00-0.49 UG/ML Sodium Level 142 135-145 MMOL/L Potassium Level 4.2 3.6-5.0 MMOL/L Chloride Level 104 98-107 MMOL/L Carbon Dioxide Level 24 21-32 MMOL/L Anion Gap 14 5-14 MMOL/L Blood Urea Nitrogen 13 7-18 MG/DL Creatinine 1.03 0.60-1.30 MG/DL Estimat Glomerular Filtration Rate 52 BUN/Creatinine Ratio 13 Glucose Level 272 H 70-105 MG/DL Calcium Level 9.3 8.5-10.1 MG/DL Corrected Calcium 9.3 8.5-10.1 MG/DL Magnesium Level 1.9 1.6-2.4 MG/DL Total Bilirubin 0.6 0.1-1.0 MG/DL Aspartate Amino Transf (AST/SGOT) 19 5-34 U/L Alanine Aminotransferase (ALT/SGPT) 16 0-55 U/L Alkaline Phosphatase 85 40-136 U/L Myoglobin 54.0 10.0-92.0 NG/ML Troponin I 0.422 *H <0.028 NG/ML B-Type Natriuretic Peptide 1500.2 H <100.0 PG/ML Total Protein 7.1 6.4-8.2 GM/DL Albumin 4.0 3.2-4.5 GM/DL My Orders Orders - JESSA HOOD IT INFRASTRUCTURE ARCHITECT Cbc With Automated Diff (02/03/21 12:17) Magnesium (02/03/21 12:17) Chest 1 View, Ap/Pa Only (02/03/21 12:17) Comprehensive Metabolic Panel (02/03/21 12:17) Myoglobin Serum (02/03/21 12:17) Protime With Inr (02/03/21 12:17) Partial Thromboplastin Time (02/03/21 12:17) O2 (02/03/21 12:17) Monitor-Rhythm Ecg Trace Only (02/03/21 12:17) Ed Iv/Invasive Line Start (02/03/21 12:17) BNP (02/03/21 12:17) Troponin I (02/03/21 12:17) Aspirin Chewable Tablet (Baby Aspirin Ch (02/03/21 12:30) Fibrin Degradation Products (02/03/21 12:17) Medications Given in ED Vital Signs/I&O 02/03/21 12:02 Temp 35.9 Pulse 86 Resp 18 B/P (MAP) 173/97 (122) Pulse Ox 97 O2 Delivery Room Air Progress Progress Note : Progress Note Patient examined and in no acute distress. Her vital signs are stable at this t varsha. She is currently reporting no symptoms. However due to her extensive cardiac history will initiate a cardiac work-up and also evaluate for any infectious causes such as pneumonia. EKG neg for ST elevation. Labs reviewed. Has elevated troponin-0.422, D-dimer-0.83, low risk PE based on age adjusted value. CXR neg for acute pathology. Discussed case with Dr. Travis with cardiology. Patient to be admit for further workup. Will initiate Lovenox 80mg subcut BID for NSTEMI. Discussed case with Dr. Fonseca, accepted admission with cardiology consult. Reviewed POC with patient and she is agreeable with plan. Initial ECG Impression Date: Feb 03, 2021 Initial ECG Impression Time: 12:06 Initial ECG Rate: 94 Initial ECG Rhythm: Normal Sinus Initial ECG Intervals: Normal Initial ECG Impression: Nonspecific Changes Initial ECG Comparisson: Unchanged Diagnostic Imaging Diagonstic Imaging: Xray Plain Films/CT/US/NM/MRI: chest Comments [facility], [place] NAME: SAIMA [facility] REC#: [id number] PT STATUS: REG ER : 1940 PHYSICIAN: JESSA HOOD IT INFRASTRUCTURE ARCHITECT ADMIT DATE: 02/03/21/ER Signed Date of Exam:02/03/21 CHEST 1 VIEW, AP/PA ONLY HISTORY: Chest pain. COMPARISON: 07/29/2020. TECHNIQUE: Frontal view of the chest. FINDINGS: The cardiac silhouette is mildly prominent but stable since the prior exam. There is no pleural effusion or pneumothorax. No focal consolidation is seen. Lung volumes are normal. There are advanced degenerative changes in the shoulders bilaterally. IMPRESSION: No acute pulmonary abnormality. Dictated by: Dictated on workstation # [id number] Dict: 02/03/21 1412 Trans: 02/03/21 1416 [id number] Interpreted by: EDITH GARAY MD Electronically signed by: EDITH GARAY MD 02/03/21 1416 Reviewed: Reviewed by Me Departure Communication (Admissions) Time/Spoke to Admitting Phy: 13:[address] Fonseca Impression Primary Impression: Non-ST elevation CT (NSTEMI) Additional Impressions: Chest pain CHF (congestive heart failure) Disposition: ADMITTED INPATIENT Condition: Stable Admissions Decision to Admit Reason: Admit from ER (General) Decision to Admit/Date: Feb 03, 2021 Time/Decision to Admit Time: 13:00 Departure-Patient Inst. Referrals: [facility] [place]) Primary Care Physician BROOKLYN TRAVIS MD (Family) Primary Care Physician Copy Copies To 1: BROOKLYN TRAVIS MD, STORMY D IT INFRASTRUCTURE ARCHITECT Feb 03, 2021 12:20
[2021-02-03 12:23] LABS: BASOPHILS # (AUTO) 0.1 10^3/uL (0.0-0.1); BASOPHILS % (AUTO) 1 % (0-10); EOSINOPHILS # (AUTO) 0.1 10^3/uL (0.0-0.3); EOSINOPHILS % (AUTO) 2 % (0-10); HEMATOCRIT 37 % (35-52); HEMOGLOBIN 11.8 g/dL (11.5-16.0); LYMPHOCYTES # (AUTO) 1.6 10^3/uL (1.0-4.0); LYMPHOCYTES % (AUTO) 17 % (12-44); MEAN CORPUSCULAR HEMOGLOBIN 27 pg (25-34); MEAN CORPUSCULAR HGB CONC 32 g/dL (32-36); MEAN CORPUSCULAR VOLUME 83 fL (80-99); MEAN PLATELET VOLUME 9.7 fL (9.0-12.2); MONOCYTES # (AUTO) 0.7 10^3/uL (0.0-1.0); MONOCYTES % (AUTO) 8 % (0-12); NEUTROPHILS # (AUTO) 6.9 10^3/uL (1.8-7.8); NEUTROPHILS % (AUTO) 73 % (42-75); PLATELET COUNT 292 10^3/uL (130-400); WHITE BLOOD COUNT 9.5 10^3/uL (4.3-11.0)
[2021-02-03] MEDS ORDERED: ASPIRIN 81 MG CHEW (CHILDREN'S ASA) PO ONE (12:30)
[2021-02-03 12:35] LABS: POTASSIUM 4.2 MMOL/L (3.6-5.0)
[2021-02-03 12:36] LABS: CALCIUM 9.3 MG/DL (8.5-10.1)
[2021-02-03 12:37] LABS: TOTAL PROTEIN 7.1 GM/DL (6.4-8.2)
[2021-02-03 12:39] LABS: BILIRUBIN,TOTAL 0.6 MG/DL (0.1-1.0)
[2021-02-03 12:41] LABS: CREATININE SERUM 1.03 MG/DL (0.60-1.30)
[2021-02-03 12:42] LABS: FIBRIN DEGRADATION PRODUCTS 0.83 UG/ML (0.00-0.49)
[2021-02-03 12:44] LABS: MAGNESIUM 1.9 MG/DL (1.6-2.4)
--- NOTE | 2021-02-03 14:15 | Diagnostic Imaging Report ---
HISTORY: Chest pain. COMPARISON: 07/29/2020. TECHNIQUE: Frontal view of the chest. FINDINGS: The cardiac silhouette is mildly prominent but stable since the prior exam. There is no pleural effusion or pneumothorax. No focal consolidation is seen. Lung volumes are normal. There are advanced degenerative changes in the shoulders bilaterally. IMPRESSION: No acute pulmonary abnormality. Dictated by: Dictated on workstation # [id number]
--- NOTE | 2021-02-03 14:34 | Consultation-Cardiology ---
HPI-Cardiology Cardiology Consultation Date of Consultation 02/03/21 Date of Admission Time Seen by Provider: 14:30 Indication: Chest pain, elevated troponin HPI Patient is a 80 y/o female well known to me with history of extensive CAD, CHF, HTN. Presented to the ER with complaints of chest pain and dyspnea, onset late last night into early this morning. Reports she woke up at approx 1 am with dyspnea and dull left sided chest pain. Chest pain lasted for approx 15-20 min. Had another episode of chest pain approx 830 this morning, called our office and instructed to go to the ER. Upon interviewing patient, she denies any active ch est pain at this time. Initial troponin mildly elevated at 0.44, BNP 1500. Admits to possible missing a few doses of lasix over the past week, but otherwise compliant with medications. Home Medications & Allergies Allergies: Coded Allergies: lisinopril (Verified Allergy, Mild, 07/29/20) Home Medication List Reviewed: Yes OAD-Xpdsuu-Mectgm Hx Patient Social History Marital Status: Recreational Drug Use: No Smoking Status: Never a Smoker Recent Hopitalizations: No Immunizations Up To Date Tetanus Booster (TDap): Unknown Date of Pneumonia Vaccine: Aug 14, 2011 Date of Influenza Vaccine: May 28, 2015 Past Medical History CAD, CHF, HTN Family Medical History Family History: Alcoholism 19 FATHER Aphasia Arthritis G8 SISTER Dementia 19 MOTHER Diabetes mellitus G8 SISTER Review of Systems-General Review of Systems Constitutional: no symptoms reported, see HPI EENTM: see HPI; No blurred vision, No double vision Respiratory: see HPI, dyspnea on exertion; No hemoptysis; orthopnea, short of breath; No wheezing Cardiovascular: see HPI, chest pain, edema, Hx of Intervention; No palpitations, No syncope Gastrointestinal: No abdominal pain, No constipation Genitourinary: no symptoms reported, see HPI Musculoskeletal: no symptoms reported Skin: no symptoms reported Psychiatric/Neurological: No Symptoms Reported Reviewed Test Results Reviewed Test Results Lab Laboratory Tests 02/03/21 12:14: White Blood Count 9.5, Red Blood Count 4.41, Hemoglobin 11.8, Hematocrit 37, Mean Corpuscular Volume 83, Mean Corpuscular Hemoglobin 27, Mean Corpuscular Hemoglobin Concent 32, Red Cell Distribution Width 14.7H, Platelet Count 292, Mean Platelet Volume 9.7, Immature Granulocyte % (Auto) 1, Neutrophils (%) (Auto) 73, Lymphocytes (%) (Auto) 17, Monocytes (%) (Auto) 8, Eosinophils (%) (Auto) 2, Basophils (%) (Auto) 1, Neutrophils # (Auto) 6.9, Lymphocytes # (Auto) 1.6, Monocytes # (Auto) 0.7, Eosinophils # (Auto) 0.1, Basophils # (Auto) 0.1, Immature Granulocyte # (Auto) 0.1, Prothrombin Time 14.0, INR Comment 1.0, Activated Partial Thromboplast Time 26, D-Dimer 0.83H, Sodium Level 142, Potassium Level 4.2, Chloride Level 104, Carbon Dioxide Level 24, Anion Gap 14, Blood Urea Nitrogen 13, Creatinine 1.03, Estimat Glomerular Filtration Rate 52, BUN/Creatinine Ratio 13, Glucose Level 272H, Calcium Level 9.3, Corrected Calcium 9.3, Magnesium Level 1.9, Total Bilirubin 0.6, Aspartate Amino Transf (AST/SGOT) 19, Alanine Aminotransferase (ALT/SGPT) 16, Alkaline Phosphatase 85, Myoglobin 54.0, Troponin I 0.422*H, B-Type Natriuretic Peptide 1500.2H, Total Protein 7.1, Albumin 4.0 ECG Impression ECG Initial ECG Rhythm: Normal Sinus Physical Exam Physical Exam Vital Signs Vital Signs - First Documented 02/03/21 12:02 Temp 35.9 Pulse 86 Resp 18 B/P (MAP) 173/97 (122) Pulse Ox 97 O2 Delivery Room Air Capillary Refill : Less Than 3 Seconds Height, Weight, BMI Height: 5'2.00" Weight: 184lbs. 6.4oz. 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 EKG showing no acute ST changes. Initial troponin elevated at 0.44, BNP elevated. Will continue with medical management at this time, continue to monitor. Arrange for outpatient LHC at tertiary center. Coronary artery disease, cardiac catheterization done 07/29/2020 with Severe stenosis in the proximal RCA with primary stenting using Jennifer 3.0 x 50mm. Totally occluded mid LAD not receiving any collateral, patient had total infarct on SPECT images. Severe stenosis in the prox first diagonal artery needing high risk intervention. Mod to severe prox/ostial circumflex artery stenosis, needs evaluated with possible intervention. Viability study done Jul 2020 showed total infarct of the anteroapex, inferoapex with fixed defect with small periinfarct ischemia. Patient continues to have in termittent episode of chest pain, referred to Dr. Aguilera for LHC. Underwent cardiac catheterization on September 01, [address] Aguilera with stenting of the distal right coronary artery using 2.5 x 24 mm Synergy stent to the right coronary artery and balloon angioplasty to the posterior lateral branch and posterior descending artery, balloon angioplasty to the proximal right coronary artery. Patient had chest pain and hospitalized in [place] on January 06, 2021 after being diagnosed with myocardial infarction, report indicate severe diffuse multivessel coronary artery disease, suggested that she had type II non-ST myocardial infarction due to diffuse coronary artery disease in the setting of high altitude, apical akinesia, normal left ventricular end-diastolic pressure. Conservative management was recommended Dyspnea on exertion, worsening over the past 24 hours, was having orthopnea, PND, BNP 1500, continue to diurese. Acute on chronic CHF, LV systolic dysfunction with EF 30-35% per 2D Echo done November 2020, maintained on beta ozzy, ARB, Lasix. Continue to diurese, continue to moniotr. Mild bilateral carotid stenosis per carotid duplex done Apr 2020 Hypertension, restart home blood pressure medication and monitor blood pressure Allergy to AYUSH-I with cough Hyperlipidemia, maintained on statin, continue to monitor. Diabetes mellitus, followed and managed by primary care physician Thank you for allowing us to participate in the management of Ms. Bhatia. This is Sierra Allen PA-C, as a scribe for Dr. Travis Patient was seen and evaluated with Sierra, I interviewed the patient and performed physical examination Reporting chest pain and shortness of breath, having some improvement, had mild elevation in troponin Review of her records showed extensive coronary artery disease, had multiple cardiac catheterization in the recent past. Had a stent to the right coronary artery, stent and balloon angioplasty to the posterior lateral branch and posterior descending artery, balloon angioplasty to the proximal right coronary artery, decision to treated conservatively, had another cardiac cath done in spring and considered having small vessel disease. Patient will be treated conservatively Continue with aggressive treatment, educated on not missing any of her medication doses Monitor blood pressure and lipids Monitor troponin level SIERRA ANDINO Feb 03, 2021 2:34 pm BROOKLYN TRAVIS MD Feb 03, 2021 4:10 pm
[2021-02-03] MEDS ORDERED: NITROGLYCERIN 0.4 MG SL TABS BTL 25'S SL PRN (15:15)
[2021-02-03] MEDS ORDERED: ONDANSETRON 4 MG/2 ML (SDV) Z0FRAN IVP PRN (15:15)
[2021-02-03] MEDS ORDERED: morphine INJ 4 MG/ML 1 ML (VIAL/SYRINGE) IV PRN (15:15)
[2021-02-03] MEDS ORDERED: ACETAMINOPHEN 325 MG TABLET PO PRN (15:15)
[2021-02-03] MEDS ORDERED: ENOXAPARIN 80 MG/0.8 ML (LOVENOX) SYR SC NR (15:15)
[2021-02-03] MEDS ORDERED: CATHETER FLUSH 10 ML SYR IV PRN (15:15)
[2021-02-03 15:39] VITALS: BP 148/74
[2021-02-03] MEDS: inSUlin ASPART (NovoLOG) 1 UNIT/0.01 ML (CHARGE PER UNIT) SC SCH ×2 (16:28→20:50)
[2021-02-03 16:30] VITALS: BP 124/75
[2021-02-03 19:46] VITALS: BP 133/79
[2021-02-03] MEDS: CATHETER FLUSH 10 ML SYR IV SCH (20:51)
[2021-02-03 23:57] VITALS: BP 106/62
[2021-02-04 00:55] LABS: BASOPHILS # (AUTO) 0.1 10^3/uL (0.0-0.1); BASOPHILS % (AUTO) 1 % (0-10); EOSINOPHILS # (AUTO) 0.3 10^3/uL (0.0-0.3); EOSINOPHILS % (AUTO) 3 % (0-10); HEMATOCRIT 34 % (35-52); HEMOGLOBIN 10.9 g/dL (11.5-16.0); LYMPHOCYTES # (AUTO) 1.8 10^3/uL (1.0-4.0); LYMPHOCYTES % (AUTO) 19 % (12-44); MEAN CORPUSCULAR HEMOGLOBIN 27 pg (25-34); MEAN CORPUSCULAR HGB CONC 32 g/dL (32-36); MEAN CORPUSCULAR VOLUME 84 fL (80-99); MEAN PLATELET VOLUME 9.2 fL (9.0-12.2); MONOCYTES # (AUTO) 0.8 10^3/uL (0.0-1.0); MONOCYTES % (AUTO) 9 % (0-12); NEUTROPHILS # (AUTO) 6.5 10^3/uL (1.8-7.8); NEUTROPHILS % (AUTO) 69 % (42-75); PLATELET COUNT 255 10^3/uL (130-400); WHITE BLOOD COUNT 9.4 10^3/uL (4.3-11.0)
[2021-02-04 02:22] LABS: POTASSIUM 3.7 MMOL/L (3.6-5.0)
[2021-02-04 02:23] LABS: CALCIUM 8.9 MG/DL (8.5-10.1)
[2021-02-04 02:27] LABS: CREATININE SERUM 0.99 MG/DL (0.60-1.30)
[2021-02-04 04:12] VITALS: BP 125/77
[2021-02-04] MEDS: inSUlin ASPART (NovoLOG) 1 UNIT/0.01 ML (CHARGE PER UNIT) SC SCH ×2 (05:56→13:11)
[2021-02-04] MEDS: CATHETER FLUSH 10 ML SYR IV SCH (05:57)
[2021-02-04] MEDS ORDERED: ENOXAPARIN 80 MG/0.8 ML (LOVENOX) SYR SC SCH (06:00)
--- NOTE | 2021-02-04 08:16 | Cardiology Progress Note ---
Subjective Date Seen by Provider: Feb 04, 2021 Time Seen by Provider: 08:14 Subjective/Events-last exam Patient was seen at bedside, laying down comfortably, denied any active pain at this point, feeling better Review of Systems General: No Chills, No Night Sweats, No Fatigue, No Malaise, No Appetite, No Other HEENT: No Head Aches, No Visual Changes, No Eye Pain, No Ear Pain, No Dysphasia, No Sinus Congestion, No Post Nasal Drip, No Sore Throat, No Other Pulmonary: No Dyspnea, No Cough, No Pleuritic Chest Pain, No Other Cardiovascular: No: Chest Pain, Palpitations, Orthopnea, Paroxysmal Noc. Dyspnea, Edema, Lt Headedness, Other Objective-Cardiology Exam Last Set of Vital Signs Vital Signs 02/04/21 04:12 Temp 36.4 Pulse 93 Resp 18 B/P (MAP) 125/77 (93) Pulse Ox 94 O2 Delivery Room Air Capillary Refill : Less Than 3 Seconds I&O Intake and Output 02/04/21 00:00 Intake Total 200 ml Output Total 450 ml Balance -250 ml Intake Oral 200 ml Output Urine Total 450 ml # Bowel Movements 1 Daily Weight Change No General: Alert, Oriented X3, Cooperative HEENT: Atraumatic, PERRLA Neck: Supple, No JVD, No Thyromegaly Lungs: Clear to Auscultation, Normal Air Movement Heart: Regular Rate, Normal S1, Normal S2, No Murmurs Abdomen: Normal Bowel Sounds, Soft, No Tenderness, No Hepatosplenomegaly, No Masses Extremities: No Clubbing, No Cyanosis, No Edema, Normal Pulses, No Tenderness/Swelling Skin: No Rashes, No Breakdown, No Significant Lesion Neuro: Normal Gait, Normal Speech, Strength at 5/5 X4 Ext, Normal Tone, Sensation Intact Psych/Mental Status: Mental Status NL, Mood NL Results Lab Laboratory Tests 02/03/21 12:14 02/04/21 00:45 A/P-Cardiology Admission Diagnosis Chest pain NSTEMI CAD CHF Assessment/Plan Chest pain, NSTEMI, history of chronic stable angina, reports onset of chest pain last night, currently chest pain free. EKG showing no acute ST changes. I reviewed her cath film again and discussed it with Dr. Camacho at [place], her left side system showed occlusion of the LAD and her circumflex has severe disease but it is a very small artery, recommended conservative management. Not amendable to intervention at this point. Coronary artery disease, cardiac catheterization done 07/29/2020 with Severe stenosis in the proximal RCA with primary stenting using Jennifer 3.0 x 50mm. Totally occluded mid LAD not receiving any collateral, patient had total infarct on SPECT images. Severe stenosis in the prox first diagonal artery needing high risk intervention. Mod to severe prox/ostial circumflex artery stenosis, needs evaluated with possible intervention. Viability study done Jul 2020 showed total infarct of the anteroapex, inferoapex with fixed defect with small periinfarct ischemia. Patient continues to have intermittent episode of chest pain, referred to Dr. Aguilera for [facility]. Underwent cardiac catheterization on September 01, [address] Aguilera with stenting of the distal right coronary artery using 2.5 x 24 mm Synergy stent to the right coronary artery and balloon angioplasty to the posterior lateral branch and posterior descending artery, balloon angioplasty to the proximal right coronary artery. Patient had chest pain and hospitalized in [place] on January 06, 2021 after being diagnosed with myocardial infarction, report indicate severe diffuse multivessel coronary artery disease, suggested that she had type II non-ST myocardial infarction due to diffuse coronary artery disease in the setting of high altitude, apical akinesia, normal left ventricular end-diastolic pressure. Conservative management was recommended Dyspnea on exertion, worsening over the past 24 hours, was having orthopnea, PND, BNP 1500, continue to diurese. Acute on chronic CHF, LV systolic dysfunction with EF 30-35% per 2D Echo done November 2020, maintained on beta ozzy, ARB, Lasix. Continue to diurese, continue to moniotr. Mild bilateral carotid stenosis per carotid duplex done Apr 2020 Hypertension, restart home blood pressure medication and monitor blood pressure Allergy to AYUSH-I with cough Hyperlipidemia, maintained on statin, continue to monitor. Diabetes mellitus, followed and managed by primary care physician Okay for discharge from cardiology standpoint and follow-up as an outpatient Clinical Quality Measures AMI/AHF: ASA po Prior to arrival: BROOKLYN Presley MD Feb 04, 2021 08:16
[2021-02-04] MEDS: amLODIPine 5 MG (NORVASC) TAB PO SCH ×2 (08:27→08:29)
[2021-02-04] MEDS: GABAPENTIN 600 MG (NEURONTIN) TAB PO SCH ×2 (08:27→08:29)
[2021-02-04] MEDS: CYANOCOBALAMIN 1,000 MCG (VITAMIN B-12) TABLET PO SCH ×2 (08:27→08:29)
[2021-02-04] MEDS: PANTOPRAZOLE 40 MG (PROTONIX) TAB PO SCH ×2 (08:27→08:29)
[2021-02-04] MEDS: ASPIRIN E.C. 81 MG (ECOTRIN) TAB PO SCH ×2 (08:27→08:30)
[2021-02-04 08:31] VITALS: BP 148/73
[2021-02-04] MEDS ORDERED: NON-FORMULARY MEDICATION 1 EA EA (Pantoprazole Sodium (Protonix) 40 MG) PO SCH (09:00)
[2021-02-04] MEDS ORDERED: CLOPIDOGREL 75 MG (PLAVIX) TABLET PO SCH (09:00)
[2021-02-04] MEDS ORDERED: METF-397 PO (10:18)
[2021-02-04] MEDS ORDERED: CLOP75TA28 PO (10:18)
[2021-02-04] MEDS ORDERED: POTA10TA36 PO (10:18)
[2021-02-04] MEDS ORDERED: MULT-1136 PO (10:18)
[2021-02-04] MEDS ORDERED: ISOS30TA82 PO (10:18)
[2021-02-04] MEDS ORDERED: GBPN600T PO (10:18)
[2021-02-04] MEDS ORDERED: ROSU20TA32 PO ×2 (10:18→13:01)
[2021-02-04] MEDS ORDERED: ASPI-1238 PO (10:18)
[2021-02-04] MEDS ORDERED: PANT40TA52 PO (10:18)
[2021-02-04] MEDS ORDERED: FURO20TA4 PO (10:18)
[2021-02-04] MEDS ORDERED: LOSA50TA63 PO (10:22)
[2021-02-04 12:58] VITALS: BP 130/80
--- NOTE | 2021-02-04 12:58 | Short Stay Summary ---
HPI History of Present Illness: 80 yo came to hospital due to symptoms of heart attack. She was camping and had onset of shortness of breath and a little bit of pain in left chest. She had similar problem in [place] not long ago and she had a bunch of tests but did not have stents placed at that time. She had a stent in July by Dr. Travis and [address] Chapa. She reports she has been taking all of her medications. Denies fever, cough. Source: patient Date seen by provider: Feb 04, 2021 Time Seen by Provider: 12:55 Attending Physician Daniela Otto MD PCP Center/[facility] [place] Consult Date of Admission Feb 03, 2021 at 13:22 Home Medications Home Medications Reviewed patient Home Medication Reconciliation performed by pharmacy medication reconciliations carpet cleaning technician and/or nursing. Patients Allergies have been reviewed. Allergies Coded Allergies: lisinopril (Verified Allergy, Mild, 07/29/20) HCC-Bsdyuj-Kouhwi Hx Patient Social History Marrital Status: Smoking Status: Never a Smoker Recent Hopitalizations: No Alcohol Use?: No Have you traveled recently?: No Immunizations Up To Date Tetanus Booster (TDap): Unknown Date of Pneumonia Vaccine: Aug 14, 2011 Date of Influenza Vaccine: May 28, 2015 Past Medical History PMHx: Coronary artery disease HTN HLD Diabetes SurgHx: Hip surgery Hysterectomy Family Medical History Family History: Alcoholism 19 FATHER Aphasia Arthritis G8 SISTER Dementia 19 MOTHER Diabetes mellitus G8 SISTER Review of Systems (CHC) Constitutional: No fever EENTM: No nose congestion, No throat pain Respiratory: No cough, No short of breath Cardiovascular: No chest pain, No palpitations Gastrointestinal: No abdominal pain, No constipation, No diarrhea, No nausea, No vomiting Genitourinary: No dysuria Musculoskeletal: joint pain (right hip) Skin: No rash Reviewed Test Results Reviewed Test Results Lab Laboratory Tests Test 02/03/21 12:14 02/03/21 16:28 02/03/21 18:27 02/03/21 20:39 Range/Units White Blood Count 9.5 4.3-11.0 10^3/uL Red Blood Count 4.41 3.80-5.11 10^6/uL Hemoglobin 11.8 11.5-16.0 g/dL Hematocrit 37 35-52 % Mean Corpuscular Volume 83 80-99 fL Mean Corpuscular Hemoglobin 27 25-34 pg Mean Corpuscular Hemoglobin Concent 32 32-36 g/dL Red Cell Distribution Width 14.7 H 10.0-14.5 % Platelet Count 292 130-400 10^3/uL Mean Platelet Volume 9.7 9.0-12.2 fL Immature Granulocyte % (Auto) 1 % Neutrophils (%) (Auto) 73 42-75 % Lymphocytes (%) (Auto) 17 12-44 % Monocytes (%) (Auto) 8 0-12 % Eosinophils (%) (Auto) 2 0-10 % Basophils (%) (Auto) 1 0-10 % Neutrophils # (Auto) 6.9 1.8-7.8 10^3/uL Lymphocytes # (Auto) 1.6 1.0-4.0 10^3/uL Monocytes # (Auto) 0.7 0.0-1.0 10^3/uL Eosinophils # (Auto) 0.1 0.0-0.3 10^3/uL Basophils # (Auto) 0.1 0.0-0.1 10^3/uL Immature Granulocyte # (Auto) 0.1 0.0-0.1 10^3/uL Prothrombin Time 14.0 12.2-14.7 SEC INR Comment 1.0 0.8-1.4 Activated Partial Thromboplast Time 26 24-35 SEC D-Dimer 0.83 H 0.00-0.49 UG/ML Sodium Level 142 135-145 MMOL/L Potassium Level 4.2 3.6-5.0 MMOL/L Chloride Level 104 98-107 MMOL/L Carbon Dioxide Level 24 21-32 MMOL/L Anion Gap 14 5-14 MMOL/L Blood Urea Nitrogen 13 7-18 MG/DL Creatinine 1.03 0.60-1.30 MG/DL Estimat Glomerular Filtration Rate 52 BUN/Creatinine Ratio 13 Glucose Level 272 H 70-105 MG/DL Calcium Level 9.3 8.5-10.1 MG/DL Corrected Calcium 9.3 8.5-10.1 MG/DL Magnesium Level 1.9 1.6-2.4 MG/DL Total Bilirubin 0.6 0.1-1.0 MG/DL Aspartate Amino Transf (AST/SGOT) 19 5-34 U/L Alanine Aminotransferase (ALT/SGPT) 16 0-55 U/L Alkaline Phosphatase 85 40-136 U/L Myoglobin 54.0 10.0-92.0 NG/ML Troponin I 0.422 *H 0.394 *H <0.028 NG/ML B-Type Natriuretic Peptide 1500.2 H <100.0 PG/ML Total Protein 7.1 6.4-8.2 GM/DL Albumin 4.0 3.2-4.5 GM/DL Glucometer 134 H 197 H 70-110 MG/DL Test 02/04/21 00:45 02/04/21 05:55 02/04/21 11:20 Range/Units White Blood Count 9.4 4.3-11.0 10^3/uL Red Blood Count 4.03 3.80-5.11 10^6/uL Hemoglobin 10.9 L 11.5-16.0 g/dL Hematocrit 34 L 35-52 % Mean Corpuscular Volume 84 80-99 fL Mean Corpuscular Hemoglobin 27 25-34 pg Mean Corpuscular Hemoglobin Concent 32 32-36 g/dL Red Cell Distribution Width 14.8 H 10.0-14.5 % Platelet Count 255 130-400 10^3/uL Mean Platelet Volume 9.2 9.0-12.2 fL Immature Granulocyte % (Auto) 0 % Neutrophils (%) (Auto) 69 42-75 % Lymphocytes (%) (Auto) 19 12-44 % Monocytes (%) (Auto) 9 0-12 % Eosinophils (%) (Auto) 3 0-10 % Basophils (%) (Auto) 1 0-10 % Neutrophils # (Auto) 6.5 1.8-7.8 10^3/uL Lymphocytes # (Auto) 1.8 1.0-4.0 10^3/uL Monocytes # (Auto) 0.8 0.0-1.0 10^3/uL Eosinophils # (Auto) 0.3 0.0-0.3 10^3/uL Basophils # (Auto) 0.1 0.0-0.1 10^3/uL Immature Granulocyte # (Auto) 0.0 0.0-0.1 10^3/uL Sodium Level 141 135-145 MMOL/L Potassium Level 3.7 3.6-5.0 MMOL/L Chloride Level 106 98-107 MMOL/L Carbon Dioxide Level 22 21-32 MMOL/L Anion Gap 13 5-14 MMOL/L Blood Urea Nitrogen 17 7-18 MG/DL Creatinine 0.99 0.60-1.30 MG/DL Estimat Glomerular Filtration Rate 54 BUN/Creatinine Ratio 17 Glucose Level 160 H 70-105 MG/DL Calcium Level 8.9 8.5-10.1 MG/DL Troponin I 0.284 H <0.028 NG/ML Glucometer 162 H 196 H 70-110 MG/DL Physical Exam-([facility]) Physical Exam Vital Signs VS - Last 72 Hours, by Label 02/03/21 02/03/21 02/03/21 02/03/21 12:02 14:38 14:56 15:26 Temp 35.9 Pulse 86 78 92 Resp 18 18 B/P (MAP) 173/97 (122) 125/80 Pulse Ox 97 96 96 O2 Delivery Room Air Room Air Room Air 02/03/21 02/03/21 02/03/21 02/03/21 15:39 16:30 19:00 19:46 Temp 36.0 36.2 35.4 Pulse 83 81 95 91 Resp 20 18 16 B/P (MAP) 148/74 (98) 124/75 (91) 133/79 (97) Pulse Ox 97 94 95 O2 Delivery Room Air Room Air Room Air 02/03/21 02/03/21 02/04/21 02/04/21 20:55 23:57 01:00 04:12 Temp 36.2 36.4 Pulse 92 90 93 Resp 18 18 B/P (MAP) 106/62 (77) 125/77 (93) Pulse Ox 95 98 94 O2 Delivery Room Air Room Air Room Air 02/04/21 02/04/21 02/04/21 07:00 08:00 08:31 Temp 36.0 Pulse 98 90 Resp 18 B/P (MAP) 148/73 (98) Pulse Ox 96 O2 Delivery Room Air Room Air Capillary Refill : Less Than 3 Seconds General Appearance: no apparent distress Respiratory: lungs clear, normal breath sounds Cardiovascular: regular rate, rhythm, no murmur Neurologic/Psychiatric: alert, normal mood/affect Skin: normal color, warm/dry Short Stay Diagnosis Discharge Diagnosis-Short Stay Admission Diagnosis NSTEMI Acute on chronic systolic CHF Final Discharge Diagnosis NSTEMI Acute on chronic systolic CHF Conclusion Plan See problem list Was the Problem List Reviewed?: No Clinical Quality Measures AMI/AHF: ASA po Prior to arrival: No Assessment/Plan Assessment/Plan Admission Status: Observation (1) Non-ST elevation VA (NSTEMI) Status: Acute Assessment & Plan: Elevated troponin and chest pain, Cardiology consulted, small vessel disease noted on prior catheterization requiring conservative management. (2) CHF (congestive heart failure) Status: Acute Assessment & Plan: LV systolic dysfunction with EF 30-35% per 2D Echo done November 2020, on beta ozzy, ARB, Lasix. Diuresed per Cardiology with improved symptoms. Qualifiers: Qualified Codes: I50.23 - Acute on chronic systolic (congestive) heart failure (3) Chest pain Status: Acute Qualifiers: Qualified Codes: I20.0 - Unstable angina (4) Diabetes type 2, uncontrolled Status: Chronic Qualifiers: Qualified Codes: E11.65 - Type 2 diabetes mellitus with hyperglycemia (5) Coronary artery disease Status: Acute Assessment & Plan: Per Cardiology, discussed wtih Dr. Camacho at [place], her left side system showed occlusion of the LAD and her circumflex has severe disease but it is a very small artery, recommended conservative management. Qualifiers: Qualified Codes: I25.110 - Atherosclerotic heart disease of [place] coronary artery with unstable angina pectoris DANIELA OTTO MD Feb 04, 2021 12:58
== END 2021-02-04 14:00 | disposition home or self-care (01) ==
LOC: EDUNIT# 12:00 → ER 12:02 → CSD 13:22
PROVIDERS: ADMIT Family Medicine; ATTEND Family Medicine
DX: I21.4 Non-ST elevation (NSTEMI) myocardial infarction (principal); I11.0 Hypertensive heart disease with heart failure; I50.23 Acute on chronic systolic (congestive) heart failure; I25.10 Atherosclerotic heart disease of native coronary artery without angina pectoris; I65.23 Occlusion and stenosis of bilateral carotid arteries; E78.5 Hyperlipidemia, unspecified; E11.9 Type 2 diabetes mellitus without complications; M19.90 Unspecified osteoarthritis, unspecified site; K59.09 Other constipation; Z79.02 Long term (current) use of antithrombotics/antiplatelets; Z79.4 Long term (current) use of insulin; Z79.899 Other long term (current) drug therapy; Z90.89 Acquired absence of other organs; Z90.710 Acquired absence of both cervix and uterus
CPT/HCPCS: 36415; 71045; 80048; 80053; 82947; 83735; 83874; 83880; 84484; 85025; 85379; 85610; 85730; 93005; 93041

== ENCOUNTER → 2021-03-15 | Outpatient (CLI) | payer MEDICARE ==
[~2021-03-15] MED LIST changes: +FURO20TA4 PO; +ISOS30TA82 PO; +MULT-1136 PO; +PANT40TA52 PO; +POTA10TA36 PO; +ROSU20TA32 PO
--- NOTE | 2021-03-15 15:53 | Diagnostic Imaging Report ---
PROCEDURE: MRI lumbar spine. TECHNIQUE: Multiplanar, multisequence MRI of the lumbar spine was performed without contrast. INDICATION: Low back pain, difficulty walking. Multiple falls. EXAMINATION: Lumbar spine MRI 03/15/2021 FINDINGS: There is a rounded T2 hyperintense lesion within the L2 vertebral body which demonstrates some hyperintensity on T1-weighted imaging as well. This most likely represents an atypical hemangioma. This could be confirmed with CT imaging through the region. A similar smaller lesion is seen along the inferior endplate at T10. Alignment of the spine is preserved. Vertebral body heights maintained. No acute compression deformities appreciated. Tip of the conus unremarkable in appearance and location. Within the visualized thoracic spine there appears to be severe central stenosis at the T11-T12 level secondary to a broad-based bulging disc and bilateral facet and ligamentum flavum hypertrophy. No signal change within the cord is appreciated. Likely moderate to severe central stenosis is also noted at T10-T11 however axial imaging through this level not included. If clinically indicated dedicated thoracic spine MRI could provide further characterization. L1-L2: There is intervertebral disc space narrowing and disc desiccation with mild broad-based bulging disc material. There is bilateral facet hypertrophy. There is no significant central stenosis. There is severe bilateral neural foraminal stenosis. L1-L2: There is intervertebral disc space narrowing and disc desiccation and a broad-based bulging disc with Modic type degenerative findings present. There is bilateral facet and ligamentum flavum hypertrophy. Findings cause severe central stenosis. There is severe bilateral neural foraminal narrowing. L3-L4: There is intervertebral disc space narrowing and disc desiccation and a broad-based bulging disc with bilateral facet and ligamentum flavum hypertrophy. Secondary severe central stenosis with narrowing of the lateral recesses bilaterally. There is severe left and moderate right neural foraminal stenosis. L4-L5: There is intervertebral disc space narrowing and disc desiccation with mild broad-based bulging disc material. There is bilateral facet and ligamentum flavum hypertrophy. There is moderate central narrowing with narrowing of the lateral recesses, left worse than right. There is moderate bilateral neural foraminal stenosis. L5-S1: There is intervertebral disc space narrowing. Bilateral facet and ligamentum flavum hypertrophy noted with narrowing of the lateral recesses, left worse than right. There is no significant central stenosis. There is moderate bilateral neural foraminal narrowing. The visualized intra-abdominal structures appear unremarkable. IMPRESSION: 1. Multilevel diffuse degenerative disease as described above with areas of severe central and neural foraminal stenosis, as described, including areas of severe central stenosis in the lower thoracic spine, some of which is incompletely imaged. See above discussion. Dictated by: Dictated on workstation # [id number]
== END ==
LOC: RAD 08:00
PROVIDERS: ATTEND Nurse Practitioner
DX: M47.816 Spondylosis without myelopathy or radiculopathy, lumbar region (principal); M51.26 Other intervertebral disc displacement, lumbar region; M51.27 Other intervertebral disc displacement, lumbosacral region; M51.36 Other intervertebral disc degeneration, lumbar region; M51.37 Other intervertebral disc degeneration, lumbosacral region; M48.061 Spinal stenosis, lumbar region without neurogenic claudication; M89.38 Hypertrophy of bone, other site; M24.28 Disorder of ligament, vertebrae; G95.9 Disease of spinal cord, unspecified
CPT/HCPCS: 72148

== ENCOUNTER → 2021-07-20 | Outpatient (CLI) | payer MEDICARE ==
[~2021-07-20] MED LIST changes: -POTA10TA36 PO; +POTA10TA37 PO
== END ==
LOC: CARD 09:30
PROVIDERS: ATTEND Internal Medicine Cardiovascular Disease
DX: I11.9 Hypertensive heart disease without heart failure (principal); I08.0 Rheumatic disorders of both mitral and aortic valves
CPT/HCPCS: 93306

== ENCOUNTER → 2023-04-05 | Outpatient (CLI) | payer MEDICARE ==
[~2023-04-05] MED LIST changes: -INSU100I29 SQ; +INSU100I30 SQ; +POTA-177 PO; -POTA10TA37 PO; -ROSU20TA32 PO; +ROSU20TA73 PO; +VITA-212 PO; -VITA-272 PO
== END ==
LOC: CARD 09:45
PROVIDERS: ATTEND Physician Assistant
DX: I11.9 Hypertensive heart disease without heart failure (principal); I34.0 Nonrheumatic mitral (valve) insufficiency
CPT/HCPCS: 93306

== ENCOUNTER 2023-04-23 12:10 | Emergency (ER) | payer MEDICARE ==
[~2023-04-23] VITALS: Ht 154 cm; Wt 74.0 kg
--- NOTE | 2023-04-23 12:37 | ED Lower Extremity ---
General Chief Complaint: Lower Extremity Stated Complaint: INJ LEFT KNEE/HIP Nursing Triage Note: PT OUT OF CAR PER W/C. PT STATES FELL YESTERDAY HIT FACE AND NOSE. WAS SEEN AT [facility] FOR NOSE BUT UNABLE TO X-RAY L LEG. PT CO OF PAIN 10/10 ON L KNEE. KNEE VERY SWOLLEN. PT HAS BANDAID ACROSS BRIDGE OF NOSE FROM ABRASION Source: patient Exam Limitations: no limitations History of Present Illness Date Seen by Provider: Apr 23, 2023 Time Seen by Provider: 12:28 Initial Comments 82-year-old female presents to the ER with complaint of left knee pain and intermittent left hip pain due to a fall that occurred yesterday. Patient states she tripped and fell, hitting her face, and landed on both of her knees. She states she was seen at [facility] yesterday for her face, but they were unable to complete any x-rays or CTs. She presents today with worsening left knee pain as well as intermittent left hip pain. Patient does take aspirin. Allergies and Home Medications Allergies Coded Allergies: lisinopril (Verified Allergy, Mild, 07/29/20) Patient Home Medication List Home Medication List Reviewed: Yes Amlodipine Besylate (Amlodipine Besylate) 5 Mg Tablet, 5 MG PO DAILY, (Reported) Entered as Reported by: GEORGI BISHOP on 07/29/20 0941 Aspirin (Aspirin EC) 81 Mg Tablet.dr, 81 MG PO 1800, (Reported) Entered as Reported by: SHAYNA ECKERT on 02/04/21 1018 Clopidogrel Bisulfate (Clopidogrel) 75 Mg Tablet, 75 MG PO DAILY, (Reported) Entered as Reported by: SHAYNA ECKERT on 02/04/21 1018 Cyanocobalamin (Vitamin B-12) (Vitamin B-12) 1,000 Mcg Tablet, 1,000 MCG PO DAILY, (Reported) Entered as Reported by: ÓCSAR JIMENEZ on 07/20/15 1236 Furosemide (Furosemide) 20 Mg Tablet, 20 MG PO DAILY, (Reported) Entered as Reported by: SHAYNA ECKERT on 02/04/21 1018 Gabapentin (Gabapentin) 600 Mg Tablet, 600 MG PO DAILY PRN for PAIN- BREAKTHROUGH, (Reported) Entered as Reported by: GEORGI BISHOP on 07/29/20 0941 Gabapentin (Gabapentin) 600 Mg Tablet, 600 MG PO HS, (Reported) Entered as Reported by: SHAYNA ECKERT on 02/04/21 1018 Insulin Detemir (Levemir Flextouch) 100 Unit/1 Ml Insuln.pen, 25 UNIT SQ BID, (Reported) Entered as Reported by: GEORGI BISHOP on 07/29/20 0941 Isosorbide Mononitrate (Isosorbide Mononitrate ER) 30 Mg Tab.er.24h, 30 MG PO DAILY, (Reported) Entered as Reported by: SHAYNA ECKERT on 02/04/21 1018 Losartan Potassium (Losartan Potassium) 50 Mg Tablet, 50 MG PO HS, (Reported) Entered as Reported by: SHAYNA ECKERT on 02/04/21 1022 Metformin HCl (Metformin HCl) 500 Mg Tablet, 1,000 MG PO BID WITH MEALS, (Reported) Entered as Reported by: SHAYNA ECKERT on 02/04/21 1018 Metoprolol Succinate (Toprol Xl) 25 Mg Tab.er.24h, 25 MG PO 1800, (Reported) Entered as Reported by: GEORGI BISHOP on 07/29/20 0941 Multivitamin (Multivitamin) 1 Each Tablet, 1 EACH PO DAILY, (Reported) Entered as Reported by: SHAYNA ECKERT on 02/04/21 1018 [place] 3 Polyunsat Fatty Acids (Fish Oil 1,000 mg Capsule) 1,000 Mg Cap, 1,000 MG PO DAILY, (Reported) Entered as Reported by: ÓSCAR JIMENEZ on 07/20/15 1236 Pantoprazole Sodium (Pantoprazole Sodium) 40 Mg Tablet.dr, 40 MG PO DAILY, (Reported) Entered as Reported by: SHAYNA ECKERT on 02/04/21 1018 Potassium Chloride (Potassium Chloride) 10 Meq Tab.er.prt, 10 MEQ PO DAILY, (Reported) Entered as Reported by: SHAYNA ECKERT on 02/04/21 1018 Rosuvastatin Calcium (Rosuvastatin Calcium) 20 Mg Tablet, 20 MG PO HS Prescribed by: DANIELA OTTO on 02/04/21 1301 Tramadol HCl (Tramadol HCl) 50 Mg Tablet, 50 MG PO Q4H PRN for PAIN-MODERATE (5- 7), (Reported) Entered as Reported by: GEORGI BISHOP on 07/29/20 0941 Vitamin E Mixed (Vitamin E) 400 Unit Capsule, 400 UNIT PO DAILY, (Reported) Entered as Reported by: ÓSCAR JIMENEZ on 07/20/15 3596 Review of Systems Constitutional: see HPI Past Gksbgtz-Lgfdrt-Jgiviz Hx Immunizations Up To Date Tetanus Booster (TDap): Unknown PED Vaccines UTD: No Past Medical History Surgeries: Yes Appendectomy, Hysterectomy, Joint Replacement Respiratory: No Cardiac: Yes Congenital Heart Disease, Hypertension Neurological: No Gastrointestinal: Yes Chronic Constipation Musculoskeletal: Yes Arthritis Endocrine: Yes Diabetes, Non-Insulin dep Cancer: No Psychosocial: No Integumentary: No Blood Disorders: No Adverse Reaction/Blood Tranf: No Family Medical History Alcoholism 19 FATHER Aphasia Arthritis G8 SISTER Dementia 19 MOTHER Diabetes mellitus G8 SISTER Physical Exam Vital Signs Vital Signs - First Documented 04/23/23 12:20 Temp 36.2 Pulse 78 Resp 18 B/P (MAP) 155/76 (102) Pulse Ox 97 Capillary Refill : Less Than 3 Seconds Height, Weight, BMI Height: 5'2.00" Weight: 184lbs. 6.4oz. 83.638594fj; 31.00 BMI Method: General Appearance: WD/WN, no apparent distress HEENT: PERRL/EOMI Neck: supple, normal inspection Cardiovascular: regular rate, rhythm Respiratory: lungs clear, normal breath sounds, no respiratory distress, no accessory muscle use Hips: left hip bone tenderness Knees: left knee pain, left knee soft tissue tenderness, left knee swelling Neurologic/Psychiatric: alert, normal mood/affect Skin: normal color, warm/dry Progress/Results/Core Measures Results/Orders My Orders Orders - SARAH GAN APRN Ct Head/Face/Cervical Wo (04/23/23 12:34) Knee, Left, 3 Views (04/23/23 12:35) Hip, Left, 2 Views (04/23/23 12:35) Nawaf Bandage (04/23/23 13:56) Vital Signs/I&O 04/23/23 04/23/23 12:20 14:07 Temp 36.2 36.2 Pulse 78 78 Resp 18 18 B/P (MAP) 155/76 (102) 155/76 Pulse Ox 97 97 Blood Pressure Mean: 102 Progress Progress Note : Progress Note Patient seen and evaluated, resting comfortably in wheelchair, no acute distress. Based on exam and symptoms, CT of head and neck, left knee x-ray and left hip x-ray ordered. 1359 imaging reviewed. Knee x-ray shows advanced degenerative joint disease with large effusion and diffuse soft tissue swelling. No fracture. Hip x-ray shows advanced left degenerative joint disease, no fracture. CT head shows no acute intracranial process. Advanced degenerative disc disease in the C-spine. Results discussed with patient. Will apply an Nawaf bandage for patient and have patient follow-up with orthopedics. Patient instructed to stay off the knee is much as possible. Will not provide crutches due to fall risk for patient. Patient states she does have a walker at home she can use. Discharge instructions and return precautions provided. Diagnostic Imaging Diagonstic Imaging: Xray Plain Films/CT/US/NM/MRI: knee Comments [facility], [place] NAME: DORY GOVEAMARV Melo [facility] REC#: [id number] PT STATUS: DEP ER : 1940 PHYSICIAN: SARAH GAN APRN ADMIT DATE: 04/23/23/ER Signed Date of Exam:04/23/23 KNEE, LEFT, 3 VIEWS INDICATION: Left knee pain. COMPARISON: None. DISCUSSION: Three views of the left knee were obtained. Large effusion is present. Diffuse soft tissue swelling. Advanced tricompartmental degenerative joint disease. No fracture or dislocation. IMPRESSION: 1. Advanced left knee degenerative joint disease with large effusion and diffuse soft tissue swelling. Dictated by: Dictated on workstation # [id number] Dict: 04/23/23 1303 Trans: 04/23/23 1621 [id number] Interpreted by: HERO CARDOSO MD Electronically signed by: HERO CARDOSO MD 04/23/23 1621 Diagonstic Imaging: Xray Plain Films/CT/US/NM/MRI: hip Comments [facility], [place] NAME: SAIMA GOVEA MED REC#: [id number] PT STATUS: DEP ER : 1940 PHYSICIAN: SARAH GAN APRN ADMIT DATE: 04/23/23/ER Signed Date of Exam:04/23/23 HIP, LEFT, 2 VIEWS INDICATION: Left hip pain. COMPARISON: 07/28/2015. DISCUSSION: Two views of the left hip were obtained. Advanced degenerative disease noted. No fracture or dislocation. Vascular calcifications are present. Soft tissues are unremarkable. IMPRESSION: 1. Advanced left hip degenerative joint disease. No fracture. Dictated by: Dictated on workstation # [id number] Dict: 04/23/23 1303 Trans: 04/23/23 1621 [id number] Interpreted by: HERO CARDOSO MD Electronically signed by: HERO CARDOSO MD 04/23/23 1621 Diagonstic Imaging: CT Plain Films/CT/US/NM/MRI: c-spine Comments [facility] [place] NAME: SAIMA GOVEA [facility] REC#: [id number] PT STATUS: DEP ER : 1940 PHYSICIAN: SARAH GAN APRN ADMIT DATE: 04/23/23/ER Signed Date of Exam:04/23/23 CT HEAD/FACE/CERVICAL WO PROCEDURE: CT head, face, and cervical spine without contrast. TECHNIQUE: Multiple contiguous axial images were obtained through the head, neck, and facial bones without the use of intravenous contrast. Sagittal and coronal reformations through the cervical spine and facial bones were also performed. Auto Exposure Controls were utilized during the CT exam to meet ALARA standards for radiation dose reduction. INDICATION: Fall striking head and face; head, face, and neck pain. COMPARISON: None. DISCUSSION: HEAD/FACE: No acute intracranial hemorrhage, mass, midline shift, or hydrocephalus. The ventricles and sulci are normal in size and configuration for age. The orbits, sinuses, mastoid air cells, and calvarium are unremarkable. No facial fracture identified. CERVICAL SPINE: Advanced degenerative disc disease and facet arthropathy is noted diffusely throughout the cervical spine. Prominent disc osteophyte complex noted at C5-C6. Grade 1 anterolisthesis of C4 on C5 and to a lesser degree of C3 on C4 is likely due to advanced facet arthropathy. No acute fracture identified. Paraspinal soft tissues are unremarkable. IMPRESSION: 1. No acute intracranial abnormality identified. 2. No facial fracture. 3. Advanced degenerative disease throughout the cervical spine. No acute fracture. Dictated by: Dictated on workstation # [id number] Dict: 04/23/23 1257 Trans: 04/23/23 1621 [id number] Interpreted by: HERO CARDOSO MD Electronically signed by: HERO CARDOSO MD 04/23/23 162 Departure Impression Primary Impression: Effusion of knee joint, left Additional Impressions: Fall Knee injury Hip pain Disposition: HOME, SELF-CARE Condition: Stable Departure-Patient Inst. Decision time for Depature: 14:00 Referrals: [facility] [place] Primary Care Physician TIA TAN MD, MICHAEL P MD Patient Instructions: Knee Pain Add. Discharge Instructions: Follow-up with Dr. Tan, Dr. Mendez, or an orthopedic doctor of your choice. You may need to have the fluid on your knee drained. You may take your tramadol every 4 hours as needed for pain. Return for any new, concerning, or worsening symptoms. All discharge instructions reviewed with patient and/or family. Voiced understanding. SARAH GAN APRN Apr 23, 2023 12:37
--- NOTE | 2023-04-23 13:10 | Diagnostic Imaging Report ---
PROCEDURE: CT head, face, and cervical spine without contrast. TECHNIQUE: Multiple contiguous axial images were obtained through the head, neck, and facial bones without the use of intravenous contrast. Sagittal and coronal reformations through the cervical spine and facial bones were also performed. Auto Exposure Controls were utilized during the CT exam to meet ALARA standards for radiation dose reduction. INDICATION: Fall striking head and face; head, face, and neck pain. COMPARISON: None. DISCUSSION: HEAD/FACE: No acute intracranial hemorrhage, mass, midline shift, or hydrocephalus. The ventricles and sulci are normal in size and configuration for age. The orbits, sinuses, mastoid air cells, and calvarium are unremarkable. No facial fracture identified. CERVICAL SPINE: Advanced degenerative disc disease and facet arthropathy is noted diffusely throughout the cervical spine. Prominent disc osteophyte complex noted at C5-C6. Grade 1 anterolisthesis of C4 on C5 and to a lesser degree of C3 on C4 is likely due to advanced facet arthropathy. No acute fracture identified. Paraspinal soft tissues are unremarkable. IMPRESSION: 1. No acute intracranial abnormality identified. 2. No facial fracture. 3. Advanced degenerative disease throughout the cervical spine. No acute fracture. Dictated by: Dictated on workstation # [id number]
--- NOTE | 2023-04-23 13:10 | Diagnostic Imaging Report ---
INDICATION: Left knee pain. COMPARISON: None. DISCUSSION: Three views of the left knee were obtained. Large effusion is present. Diffuse soft tissue swelling. Advanced tricompartmental degenerative joint disease. No fracture or dislocation. IMPRESSION: 1. Advanced left knee degenerative joint disease with large effusion and diffuse soft tissue swelling. Dictated by: Dictated on workstation # [id number]
--- NOTE | 2023-04-23 13:11 | Diagnostic Imaging Report ---
INDICATION: Left hip pain. COMPARISON: 07/28/2015. DISCUSSION: Two views of the left hip were obtained. Advanced degenerative disease noted. No fracture or dislocation. Vascular calcifications are present. Soft tissues are unremarkable. IMPRESSION: 1. Advanced left hip degenerative joint disease. No fracture. Dictated by: Dictated on workstation # [id number]
[2023-04-23 14:07] VITALS: BP 155/76
== END 2023-04-23 14:12 | disposition home or self-care (01) ==
LOC: EDUNIT# 12:10 → ER 12:12
DX: S89.92XA Unspecified injury of left lower leg, initial encounter (principal); M17.12 Unilateral primary osteoarthritis, left knee; M16.12 Unilateral primary osteoarthritis, left hip; Z79.82 Long term (current) use of aspirin; W01.10XA Fall on same level from slipping, tripping and stumbling with subsequent striking against unspecified object, initial encounter
CPT/HCPCS: 70450; 70486; 72125; 73502; 73562